=== PATIENT | female | born 1950 | race Two or more races ===

== ENCOUNTER 2017-01-26 00:52 | Emergency (ER) | payer MEDICARE, MEDICAID ==
[2017-01-26] MEDS ORDERED: NORMAL SALINE 1000 ML 1,000 ML IV ONE (01:53)
[2017-01-26] MEDS ORDERED: FENTANYL CITRATE INJ/PF 100 MCG/2 ML AMPUL IV ONE (01:53)
[2017-01-26] MEDS ORDERED: ONDANSETRON HCL INJ/PF 4 MG/2 ML SDV IV ONE (01:53)
--- NOTE | 2017-01-26 01:55 | ER Document Report ---
ED GI/ - General Chief Complaint: Urinary Problem Stated Complaint: URINARY ISSUES AND SEVERE FLANK PAIN Time Seen by Provider: 01/26/17 01:44 Notes: Patient is a 66-year-old female who comes emergency department for chief complaint of worsening pain in her right flank and right abdomen for 3 days, she states she is nauseated now and the pain has become very sharp. Patient states that she has not had any fever or chills, she reports having nausea but denies vomiting, she states she does have some pain with urination. She does have a history of kidney stones. She has had an appendectomy, cholecystectomy. Past medical history also includes oral cancer, she has completed chemotherapy and radiation in the past. TRAVEL OUTSIDE OF THE [place] IN LAST 30 DAYS: No - Related Data Allergies/Adverse Reactions: hydromorphone HCl [From Dilaudid] Allergy (Verified 09/05/16 11:01) ketorolac tromethamine [From Toradol] Allergy (Verified 09/05/16 11:01) morphine [Morphine] Allergy (Verified 09/05/16 11:01) phenazopyridine HCl [From Pyridium] Allergy (Verified 09/05/16 11:01) tramadol [Tramadol] Allergy (Verified 09/05/16 11:01) iodine [Iodine] Adverse Reaction (Verified 09/05/16 11:01) prednisone Adverse Reaction (Verified 09/05/16 11:01) iv contrast Allergy (Uncoded 09/05/16 10:47) Past Medical History - General Information source: Patient - Social History Smoking Status: Never Smoker Frequency of alcohol use: None Drug Abuse: None Lives with: Family Family History: CAD, DM, Hyperlipidemia, Hypertension, Malignancy Patient has suicidal ideation: No Patient has homicidal ideation: No - Past Medical History Cardiac Medical History: Reports: Hx Hypercholesterolemia Pulmonary Medical History: Reports: Hx Asthma, Hx COPD Endocrine Medical History: Reports: Hx Hypothyroidism Renal/ Medical History: Denies: Hx Peritoneal Dialysis GI Medical History: Reports: Hx Gastroesophageal Reflux Disease Musculoskeltal Medical History: Reports Hx Arthritis, Reports Hx Musculoskeletal Deformity, Reports Hx Musculoskeletal Trauma Psychiatric Medical History: Reports: Hx Anxiety Past Surgical History: Reports: Hx Abdominal Surgery - Exploratory lap with removal of adhesions, bowel obstruction, Hx Appendectomy, Hx Cardiac Catheterization - SEVERAL YRS. AGO, Hx Cholecystectomy, Hx Gynecologic Surgery - oophorectomy, Hx Tonsillectomy - Immunizations Hx Diphtheria, Pertussis, Tetanus Vaccination: No Review of Systems - Review of Systems Constitutional: No symptoms reported EENT: No symptoms reported Cardiovascular: No symptoms reported Respiratory: No symptoms reported Gastrointestinal: See HPI Genitourinary: See HPI Female Genitourinary: No symptoms reported Musculoskeletal: No symptoms reported Skin: No symptoms reported Hematologic/Lymphatic: No symptoms reported Neurological/Psychological: No symptoms reported Physical Exam - Vital signs Vitals: Temp Pulse Resp BP Pulse Ox 97.6 F 61 18 126/74 H 100 01/26/17 01:26 01/26/17 01:26 01/26/17 01:26 01/26/17 01:01/26/17 01:26 Interpretation: Normal - General General appearance: Alert, Anxious In distress: Mild - patient appears to be in some pain and is slightly anxious - HEENT Head: Normocephalic, Atraumatic Eyes: Normal Eyelashes: Normal Pupils: PERRL Mouth/Lips: Normal Mucous membranes: Normal Pharynx: Normal Neck: Normal - Respiratory Respiratory status: No respiratory distress Chest status: Nontender Breath sounds: Normal. No: Decreased air movement, Wheezing Chest palpation: Normal - Cardiovascular Rhythm: Regular. No: Tachycardia Heart sounds: Normal auscultation, S1 appreciated, S2 appreciated Murmur: No - Abdominal Inspection: Normal Distension: No distension Bowel sounds: Normal Tenderness: Tender - there is generalized lower abdominal tenderness, non- specific, no guarding Organomegaly: No organomegaly - Back Back: CVA tenderness - slight CVA tenderness on the right, not severe, none on the left. No: Vertebra tenderness - Extremities General upper extremity: Normal inspection, Nontender, Normal color, Normal ROM , Normal temperature General lower extremity: Normal inspection, Nontender, Normal color, Normal ROM , Normal temperature, Normal weight bearing. No: Naima's sign - Neurological Neuro grossly intact: Yes Cognition: Normal Orientation: AAOx4 [place] Coma Scale Eye Opening: Spontaneous [place] Coma Scale Verbal: Oriented [place] Coma Scale Motor: Obeys Commands [place] Coma Scale Total: 15 Speech: Normal Motor strength normal: LUE, RUE, LLE, RLE Sensory: Normal - Psychological Associated symptoms: Normal affect, Normal mood - Skin Skin Temperature: Warm Skin Moisture: Dry Skin Color: Normal Course - Re-evaluation Re-evalutation: No leukocytosis, normal renal functioning, unremarkable chemistry, no fever, no tachycardia, no hypotension. Patient initially appeared very uncomfortable, however after medication she is calm and relaxed. Urine showing large amount of leukocyte esterase, white blood cells, white blood cell clumping, and bacteria. Culture placed. Given a dose of Rocephin. CT performed because of flank pain, nausea, and history of kidney stones. This shows no acute abnormality, shows questionable adhesion disease, I did discuss this with patient and provided her a copy of the CAT scan. Discussed with Dr. Melgoza. Patient will be provided with Levaquin, Percocet, discussed return precautions, patient has follow-up with primary care, patient states satisfaction and agreement. - Vital Signs Vital signs: Temp Pulse Resp BP Pulse Ox 97.5 F 58 L 16 133/60 H 100 01/26/17 04:14 01/26/17 04:14 01/26/17 04:14 01/26/17 04:14 01/26/17 04:14 - Laboratory Result Diagrams: 01/26/17 03:31 01/26/17 03:31 Laboratory results interpreted by me: 01/26/17 01/26/17 01/26/17 02:25 03:31 03:31 Hct 34.9 L Direct Bilirubin 0.5 H Urine Protein 30 H Urine Blood LARGE H Ur Leukocyte Esterase LARGE H Discharge - Discharge Clinical Impression: Dysuria, Flank pain Abdominal pain Qualifiers: Abdominal location: unspecified location Qualified Code(s): R10.9 - Unspecified abdominal pain Urinary tract infection Qualifiers: Urinary tract infection type: site unspecified Hematuria presence: without hematuria Qualified Code(s): N39.0 - Urinary tract infection, site not specified Condition: Stable Disposition: HOME, SELF-CARE Additional Instructions: Your workup indicates a developing urinary tract infection and developing kidney infection. He has been given Rocephin, please take the Levaquin antibiotic as directed to completion (first dose is today, 01/26), take the Percocet as needed for pain follow-up with primary care.. Follow-up with primary care. Return to emergency department for any concerning or worsening symptoms including vomiting, fever, increasing pain, etc. Prescriptions: Levofloxacin [Levaquin 750 mg Tablet] 750 mg PO DAILY #5 tablet Oxycodone HCl/Acetaminophen [Percocet 5-325 mg Tablet] 1 - 2 tab PO Q4H PRN #12 tablet PRN Reason:
[2017-01-26 03:37] LABS: ABSOLUTE BASOPHILS # (AUTO) 0.1 10^3/uL (0.0-0.2); ABSOLUTE EOSINOPHILS # (AUTO) 0.2 10^3/uL (0.0-0.6); ABSOLUTE LYMPHOCYTES (AUTO) 2.1 10^3/uL (0.5-4.7); ABSOLUTE NEUT (AUTO) 5.8 10^3/uL (1.7-8.2); BASOPHILS % (AUTO) 0.9 % (0-2); EOSINOPHILS % (AUTO) 2.3 % (0-6); HEMATOCRIT 34.9 % (36.0-47.0); HEMOGLOBIN 12.1 g/dL (12.0-15.5); HGB HCT DIFFERENCE 1.4; LYMPHOCYTES % (AUTO) 22.7 % (13-45); MEAN CORPUSCULAR HEMOGLOBIN 32.2 pg (27.0-33.4); MEAN CORPUSCULAR HGB CONC 34.6 g/dL (32.0-36.0); MEAN CORPUSCULAR VOLUME 93 fl (80-97); MONOCYTES % (AUTO) 10.8 % (3-13); RED BLOOD COUNT 3.75 10^6/uL (3.72-5.28); RED CELL DISTRIBUTION WIDTH 12.9 % (11.5-14.0); SEGMENTED NEUTROPHILS % (AUTO) 63.3 % (42-78); WHITE BLOOD COUNT 9.2 10^3/uL (4.0-10.5)
[2017-01-26 03:48] LABS: ALANINE AMINOTRANSFERASE 24 U/L (9-52); ALBUMIN 4.1 g/dL (3.5-5.0); ALKALINE PHOSPHATASE 78 U/L (38-126); ANION GAP 11 (5-19); ASPARTATE AMINO TRANSFERASE 16 U/L (14-36); BILIRUBIN,DIRECT 0.5 mg/dL (0.0-0.4); BILIRUBIN,TOTAL 0.7 mg/dL (0.2-1.3); BLOOD UREA NITROGEN 17 mg/dL (7-20); CALCIUM 10.1 mg/dL (8.4-10.2); CARBON DIOXIDE 25 mmol/L (22-30); CHLORIDE 105 mmol/L (98-107); CREATININE RESULT 0.89 mg/dL (0.52-1.25); GLUCOSE 91 mg/dL (75-110); SODIUM 140.6 mmol/L (137-145); TOTAL PROTEIN 7.1 g/dL (6.3-8.2)
[2017-01-26 04:16] VITALS: BP 133/60
[2017-01-26 04:22] LABS: APPEARANCE,URINE CLOUDY; BILIRUBIN,URINE NEGATIVE (NEGATIVE); GLUCOSE, URINE NEGATIVE (NEGATIVE); KETONES,URINE NEGATIVE (NEGATIVE); LEUKOCYTE ESTERASE,URINE LARGE (NEGATIVE); NITRITE,URINE NEGATIVE (NEGATIVE); PROTEIN,URINE 30 mg/dL (NEGATIVE); URINE SPECIFIC GRAVITY 1.005; UROBILINOGEN,URINE NEGATIVE mg/dL (<2.0)
[2017-01-26] MEDS ORDERED: CEFTRIAXONE 1 GM/D5W RTU 50 ML IV ONE (04:42)
== END 2017-01-26 06:14 | disposition home or self-care (01) ==
LOC: ER 00:52
DX: N39.0 Urinary tract infection, site not specified (principal); R10.9 Unspecified abdominal pain; R11.0 Nausea; R30.0 Dysuria; J44.9 Chronic obstructive pulmonary disease, unspecified; Z87.442 Personal history of urinary calculi; Z90.49 Acquired absence of other specified parts of digestive tract; Z85.819 Personal history of malignant neoplasm of unspecified site of lip, oral cavity, and pharynx; Z92.21 Personal history of antineoplastic chemotherapy; Z92.3 Personal history of irradiation; Z88.5 Allergy status to narcotic agent; Z88.8 Allergy status to other drugs, medicaments and biological substances; Z91.041 Radiographic dye allergy status; Z87.19 Personal history of other diseases of the digestive system
CPT/HCPCS: 99284; 96375; 96365; 36415; 87086; 85025; 87088; 80053; 81001; 87186; 76380; J3010; J2405; J0696

== ENCOUNTER 2017-04-04 08:35 | Emergency (ER) | payer MEDICARE, MEDICAID ==
--- NOTE | 2017-04-04 09:18 | ER Document Report ---
ED GI/ - General Chief Complaint: Flank Pain Stated Complaint: FLANK PAIN Time Seen by Provider: 04/04/17 09:15 Notes: Patient is a 66-year-old female, past medical history oral cancer (no longer on treatment), kidney stones, frequent kidney infections, presents with 2 days of right flank pain, dysuria and hematuria. She had a fall yesterday onto her right hip and feels that her sciatica is aggravated. TRAVEL OUTSIDE OF THE [place] IN LAST 30 DAYS: No - Related Data Allergies/Adverse Reactions: hydromorphone HCl [From Dilaudid] Allergy (Verified 04/04/17 08:43) ketorolac tromethamine [From Toradol] Allergy (Verified 04/04/17 08:43) morphine [Morphine] Allergy (Verified 04/04/17 08:43) phenazopyridine HCl [From Pyridium] Allergy (Verified 04/04/17 08:43) tramadol [Tramadol] Allergy (Verified 04/04/17 08:43) iodine [Iodine] Adverse Reaction (Verified 04/04/17 08:43) prednisone Adverse Reaction (Verified 04/04/17 08:43) iv contrast Allergy (Uncoded 04/04/17 08:43) Home Medications: Current Home Medications Meloxicam [Mobic] 15 mg PO DAILY 04/04/17 [History] Past Medical History - General Information source: Patient - Social History Smoking Status: Unknown if Ever Smoked Family History: CAD, DM, Hyperlipidemia, Hypertension, Malignancy Patient has suicidal ideation: No Patient has homicidal ideation: No - Past Medical History Cardiac Medical History: Reports: Hx Hypercholesterolemia Pulmonary Medical History: Reports: Hx Asthma, Hx COPD Endocrine Medical History: Reports: Hx Hypothyroidism Renal/ Medical History: Denies: Hx Peritoneal Dialysis GI Medical History: Reports: Hx Gastroesophageal Reflux Disease Musculoskeltal Medical History: Reports Hx Arthritis, Reports Hx Musculoskeletal Deformity, Reports Hx Musculoskeletal Trauma Psychiatric Medical History: Reports: Hx Anxiety Past Surgical History: Reports: Hx Abdominal Surgery - Exploratory lap with removal of adhesions, bowel obstruction, Hx Appendectomy, Hx Cardiac Catheterization - SEVERAL YRS. AGO, Hx Cholecystectomy, Hx Gynecologic Surgery - oophorectomy, Hx Tonsillectomy - Immunizations Hx Diphtheria, Pertussis, Tetanus Vaccination: No Review of Systems - Review of Systems Notes: REVIEW OF SYSTEMS: CONSTITUTIONAL: -fevers, -chills EENT: -eye pain, -difficulty swallowing, -nasal congestion CARDIOVASCULAR:-chest pain, -syncope. RESPIRATORY: -cough, -SOB GASTROINTESTINAL: -abdominal pain, - nausea, -vomiting, -diarrhea GENITOURINARY: +dysuria, +hematuria MUSCULOSKELETAL: +right flank pain, +right hip pain, -neck pain SKIN: -rash or skin lesions. HEMATOLOGIC: -easy bruising or bleeding. LYMPHATIC: -swollen, enlarged glands. NEUROLOGICAL: -altered mental status or loss of consciousness, -headache, - neurologic symptoms PSYCHIATRIC: -anxiety, -depression. ALL OTHER SYSTEMS REVIEWED AND NEGATIVE. Physical Exam - Vital signs Vitals: Temp Pulse Resp BP Pulse Ox 98.3 F 67 18 115/93 H 98 04/04/17 08:45 04/04/17 08:45 04/04/17 08:45 04/04/17 08:45 04/04/17 08:45 - Notes Notes: PHYSICAL EXAMINATION: GENERAL: Well-appearing, well-nourished and in no acute distress. HEAD: Atraumatic, normocephalic. EYES: Pupils equal round and reactive to light, extraocular movements intact, sclera anicteric, conjunctiva are normal. ENT: nares patent, oropharynx clear without exudates. Moist mucous membranes. NECK: Normal range of motion, supple without lymphadenopathy LUNGS: Breath sounds clear to auscultation bilaterally and equal. No wheezes rales or rhonchi. HEART: Regular rate and rhythm without murmurs ABDOMEN: Soft, nontender, normoactive bowel sounds. No guarding, no rebound. No masses appreciated. EXTREMITIES: Right CVA tenderness. Mild tenderness over right hip. Normal range of motion, no pitting or edema. No cyanosis. NEUROLOGICAL: Cranial nerves grossly intact. Normal speech, normal gait. Normal sensory and motor exams. PSYCH: Normal mood, normal affect. SKIN: Warm, Dry, normal turgor, no rashes or lesions noted. Course - Re-evaluation Re-evalutation: Patient appears well. On CAT scan she has evidence of a recently passed kidney stone, but no more stones are present. Her urinalysis shows possible urinary tract infection. Looking through old culture results, will begin Keflex to help cover for enterococcus. Her labs are unremarkable and her hip on the CT scan does not show any fractures. Instructed patient to continue her meloxicam and Percocet at home w/ f/u at PMD. Given strict return precautions and she understands. - Vital Signs Vital signs: Temp Pulse Resp BP Pulse Ox 98.3 F 67 18 115/93 H 98 04/04/17 08:45 04/04/17 08:45 04/04/17 08:45 04/04/17 08:45 04/04/17 08:45 - Laboratory Result Diagrams: 04/04/17 09:45 04/04/17 09:45 Laboratory results interpreted by me: 04/04/17 04/04/17 04/04/17 08:45 09:45 09:45 RBC 3.65 L Hgb 11.8 L Hct 34.2 L Chloride 108 H Urine Blood MODERATE H Urine Urobilinogen 2.0 H Ur Leukocyte Esterase LARGE H - Diagnostic Test Radiology reviewed: Image reviewed, Reports reviewed Radiology results interpreted by me: CT A/P: Evidence of a recently passed kidney stone Discharge - Discharge Clinical Impression: Right flank pain, Pyelonephritis, Right hip pain Condition: Stable Disposition: HOME, SELF-CARE Additional Instructions: PYELONEPHRITIS: Your evaluation shows evidence of pyelonephritis. This is an infection in the kidney. Typical symptoms are fever, pain in the flank, pain on urination, and frequent urination. Many cases of pyelonephritis can be treated at home. Hospital care may be necessary for patients who are very ill, or elderly or . Pyelonephritis is treated with antibiotics. Be sure to take all the medication as prescribed. Drink plenty of liquids (about three quarts per day) . You may take acetaminophen for fever. You should feel significantly improved within two days. You should have a recheck of your urine in about one week to insure that the infection is gone. Return for a re-examination if your symptoms worsen in any way -- such as high fever, shaking chills, severe weakness or dizziness, severe pain, or inability to pass your urine. ANTIBIOTIC THERAPY: You have been given an antibiotic prescription. It's important that you take all the medication, unless instructed otherwise by your physician. Failure to complete the entire course can result in relapse of your condition. Common side effects of antibiotics include nausea, intestinal cramping, or diarrhea. Women may develop vaginal yeast infections, and babies can get yeast (thrush) in the mouth following the use of antibiotics. Contact your physician if you develop significant side effects from this medication. Allergy to this antibiotic can result in hives, wheezing, faintness, or itching. If symptoms of allergy occur, stop the medication and call the doctor. CEPHALEXIN: The antibiotic you've been prescribed is a member of the cephalosporin class. This type of antibiotic covers a wide variety of infections, including those of the skin, lungs, and urinary tract. It's useful for staph infections. This antibiotic is slightly similar to the penicillin family. In rare cases , a person who is allergic to penicillin will also be allergic to this medication. If you have had a severe allergic reaction to penicillin, and have not taken this antibiotic since that time, notify your doctor. Antibiotics which cover many germs ("broad spectrum" antibiotics) are more likely to cause diarrhea or "yeast" infections. Women prone to vaginal yeast problems may suffer an attack after taking this antibiotic. In infants, oral thrush (white spots "stuck" on the cheek) or yeast diaper rash may result. See your doctor if these problems occur. Call at once if you develop itching, hives , shortness of breath, or lightheadedness. USE OF ACETAMINOPHEN (Tylenol): Acetaminophen may be taken for pain relief or fever control. It's much safer than aspirin, offering a wider range of "safe" dosages. It is safe during . Some brand names are Tylenol, Panadol, Datril, Anacin 3, Tempra, and Liquiprin. Acetaminophen can be repeated every four hours. The following are maximum recommended dosages: >89 pounds or adults 650 mg to 900 mg Acetaminophen can be repeated every four hours. Maximum dose not to exceed 4000 mg a day. FOLLOW-UP CARE: If you have been referred to a physician for follow-up care, call the physician s office for an appointment as you were instructed or within the next two days. If you experience worsening or a significant change in your symptoms, notify the physician immediately or return to the Emergency Department at any time for re-evaluation. Prescriptions: Cephalexin Monohydrate [Keflex 500 mg Capsule] 500 mg PO TID #21 capsule Lidocaine HCl [Xylocaine 2% Jelly 30 ml Tube] 30 ml TOP DAILYP PRN #1 tube PRN Reason: Meloxicam 15 mg PO DAILY #10 tablet Oxycodone HCl/Acetaminophen [Percocet 5-325 mg Tablet] 1 - 2 tab PO Q4H PRN #7 tablet PRN Reason:
[2017-04-04 09:25] LABS: APPEARANCE,URINE SLIGHTLY-CLOUDY; BILIRUBIN,URINE NEGATIVE (NEGATIVE); GLUCOSE, URINE NEGATIVE (NEGATIVE); KETONES,URINE NEGATIVE (NEGATIVE); LEUKOCYTE ESTERASE,URINE LARGE (NEGATIVE); NITRITE,URINE NEGATIVE (NEGATIVE); PROTEIN,URINE NEGATIVE (NEGATIVE); URINE SPECIFIC GRAVITY 1.011
[2017-04-04] MEDS ORDERED: CEFTRIAXONE 1 GM/D5W RTU 50 ML IV ONE (09:52)
[2017-04-04 09:55] LABS: ABSOLUTE EOSINOPHILS # (AUTO) 0.1 10^3/uL (0.0-0.6); ABSOLUTE LYMPHOCYTES (AUTO) 1.4 10^3/uL (0.5-4.7); ABSOLUTE MONOCYTES (AUTO) 0.5 10^3/uL (0.1-1.4); ABSOLUTE NEUT (AUTO) 3.1 10^3/uL (1.7-8.2); BASOPHILS % (AUTO) 0.8 % (0-2); EOSINOPHILS % (AUTO) 2.6 % (0-6); HEMATOCRIT 34.2 % (36.0-47.0); HEMOGLOBIN 11.8 g/dL (12.0-15.5); HGB HCT DIFFERENCE 1.2; LYMPHOCYTES % (AUTO) 27.3 % (13-45); MEAN CORPUSCULAR HEMOGLOBIN 32.3 pg (27.0-33.4); MEAN CORPUSCULAR HGB CONC 34.4 g/dL (32.0-36.0); MEAN CORPUSCULAR VOLUME 94 fl (80-97); MONOCYTES % (AUTO) 10.1 % (3-13); RED BLOOD COUNT 3.65 10^6/uL (3.72-5.28); RED CELL DISTRIBUTION WIDTH 13.5 % (11.5-14.0); SEGMENTED NEUTROPHILS % (AUTO) 59.2 % (42-78); WHITE BLOOD COUNT 5.2 10^3/uL (4.0-10.5)
[2017-04-04 10:11] LABS: ALANINE AMINOTRANSFERASE 26 U/L (9-52); ALBUMIN 4.1 g/dL (3.5-5.0); ALKALINE PHOSPHATASE 71 U/L (38-126); ANION GAP 8 (5-19); ASPARTATE AMINO TRANSFERASE 22 U/L (14-36); BILIRUBIN,DIRECT 0.3 mg/dL (0.0-0.4); BILIRUBIN,TOTAL 0.4 mg/dL (0.2-1.3); BLOOD UREA NITROGEN 12 mg/dL (7-20); CALCIUM 9.4 mg/dL (8.4-10.2); CARBON DIOXIDE 27 mmol/L (22-30); CHLORIDE 108 mmol/L (98-107); CREATININE RESULT 0.71 mg/dL (0.52-1.25); GLUCOSE 90 mg/dL (75-110); LIPASE 259.2 U/L (23-300); POTASSIUM 3.9 mmol/L (3.6-5.0); SODIUM 143.3 mmol/L (137-145); TOTAL PROTEIN 7.2 g/dL (6.3-8.2)
[2017-04-04] MEDS ORDERED: OXYCODONE-ACETAMINOPHEN 5-325 MG TABLET PO ONE (10:13)
[2017-04-04] MEDS ORDERED: MELOXICAM 15 MG TABLET PO ONE (10:13)
--- NOTE | 2017-04-04 10:14 | RADIOLOGY REPORT (SQ) ---
EXAM DESCRIPTION: CT LTD RENAL STONE PROTOCOL ON COMPLETED DATE/TIME: 04/04/2017 10:02 am REASON FOR STUDY: right flank pain, Hx kidney stones COMPARISON: 01/26/2017 TECHNIQUE: CT scan of the abdomen and pelvis performed without intravenous or oral contrast. Images reviewed with lung, soft tissue, and bone windows. Reconstructed coronal and sagittal MPR images revi ewed. All images stored on PACS. All CT scanners at this facility use dose modulation, iterative reconstruction, and/or weight based d osing when appropriate to reduce radiation dose to as low as reasonably achievable (ALARA). [facility]: Dose Right [facility]: CareDose [facility]: Dose Right [facility]: Teradose 4D [facility]: [employer] RADIATION DOSE: Up-to-date CT equipment and radiation dose reduction techniques were employed. CTDIv ol: 22.0 mGy. DLP: 1089 mGy-cm.mGy. LIMITATIONS: None. FINDINGS: LOWER CHEST: No significant findings. No nodules or infiltrates. NON-CONTRASTED LIVER, SPLEEN, ADRENALS: Hepatic cysts. PANCREAS: No masses. No peripancreatic inflammatory changes. GALLBLADDER: Surgically absent. RIGHT KIDNEY AND URETER: No suspicious masses. Assessment limited by lack of IV contrast. No signif icant calcifications. Hydroureter. LEFT KIDNEY AND URETER: Parapelvic cyst. Large cortical cysts. No suspicious masses. Assessment cueva ited by lack of IV contrast. No significant calcifications. No hydronephrosis or hydroureter. AORTA AND RETROPERITONEUM: No aneurysm. No retroperitoneal masses or adenopathy. BOWEL AND PERITONEAL CAVITY: No obvious masses or inflammatory changes. No free fluid. APPENDIX: Surgically absent. PELVIS, BLADDER, AND ABDOMINAL WALL:No abnormal masses. No free fluid. Bladder normal. BONES: No significant findings. OTHER: No other significant finding. IMPRESSION: Right hydroureter without visualized ureteral or bladder stone, possibly due to recent s tone passage. Correlation with urinalysis is recommended. TECHNICAL DOCUMENTATION: JOB ID: [id number] Quality ID # [id number]: Final reports with documentation of one or more dose reduction techniques (e.g., Au tomated exposure control, adjustment of the mA and/or kV according to patient size, use of iterative reconstruction technique) 2010 [employer]- All Rights Reserved
[2017-04-04] MEDS ORDERED: NORMAL SALINE INJ/PF 0.9% 10 ML SDV IV PRN (10:42)
[2017-04-04 11:21] VITALS: BP 148/83
== END 2017-04-04 11:19 | disposition home or self-care (01) ==
LOC: ER 08:35
DX: N12 Tubulo-interstitial nephritis, not specified as acute or chronic (principal); R10.9 Unspecified abdominal pain; M25.551 Pain in right hip; R30.0 Dysuria; R31.9 Hematuria, unspecified; W19.XXXA Unspecified fall, initial encounter; Z79.899 Other long term (current) drug therapy
CPT/HCPCS: 99284; 96365; 36415; 83690; 85025; 80053; 81001; 76380; A9270 ×2; J3490; J0696

== ENCOUNTER 2017-05-08 10:51 | Emergency (ER) | payer MEDICARE, MEDICAID ==
--- NOTE | 2017-05-08 11:20 | ER Document Report ---
ED Medical Screen (RME) - General Chief Complaint: Pain All Over Stated Complaint: SIDE PAIN Time Seen by Provider: 05/08/17 11:17 Notes: Patient presents with left-sided arm chest and neck pain that started last night. She states it does seem to hurt worse if she moves her left arm. She denies any shortness of breath or cold symptoms. 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 She did not have any surgery for this but she did have chemotherapy and radiation. The radiation did cover the left neck and chest wall. She states this was 5 years ago. She denies any previous history of coronary artery disease and states she had a negative heart catheterization about 8 years ago. TRAVEL OUTSIDE OF THE [place] IN LAST 30 DAYS: No - Related Data Allergies/Adverse Reactions: hydromorphone HCl [From Dilaudid] Allergy (Verified 05/08/17 11:04) ketorolac tromethamine [From Toradol] Allergy (Verified 05/08/17 11:04) morphine [Morphine] Allergy (Verified 05/08/17 11:04) phenazopyridine HCl [From Pyridium] Allergy (Verified 05/08/17 11:04) tramadol [Tramadol] Allergy (Verified 05/08/17 11:04) iodine [Iodine] Adverse Reaction (Verified 05/08/17 11:04) prednisone Adverse Reaction (Verified 05/08/17 11:04) iv contrast Allergy (Uncoded 05/08/17 11:04) Past Medical History - Social History Frequency of alcohol use: None Drug Abuse: None - Past Medical History Cardiac Medical History: Reports: Hx Hypercholesterolemia Pulmonary Medical History: Reports: Hx Asthma, Hx COPD Neurological Medical History: Reports: Hx Migraine Endocrine Medical History: Reports: Hx Hypothyroidism Renal/ Medical History: Denies: Hx Peritoneal Dialysis GI Medical History: Reports: Hx Gastroesophageal Reflux Disease Musculoskeltal Medical History: Reports Hx Arthritis, Reports Hx Musculoskeletal Deformity, Reports Hx Musculoskeletal Trauma Psychiatric Medical History: Reports: Hx Anxiety Past Surgical History: Reports: Hx Abdominal Surgery - Exploratory lap with removal of adhesions, bowel obstruction, Hx Appendectomy, Hx Cardiac Catheterization - SEVERAL YRS. AGO, Hx Cholecystectomy, Hx Gynecologic Surgery - oophorectomy, Hx Hysterectomy, Hx Tonsillectomy - Immunizations Hx Diphtheria, Pertussis, Tetanus Vaccination: No Physical Exam - Vital signs Vitals: Temp Pulse Resp BP Pulse Ox 97.9 F 71 20 148/85 H 100 05/08/17 11:02 05/08/17 11:02 05/08/17 11:02 05/08/17 11:02 05/08/17 11:02 Course - Vital Signs Vital signs: Temp Pulse Resp BP Pulse Ox 97.9 F 71 20 148/85 H 100 05/08/17 11:02 05/08/17 11:02 05/08/17 11:02 05/08/17 11:02 05/08/17 11:02
--- NOTE | 2017-05-08 11:51 | EKG REPORT ---
SEVERITY:- NORMAL ECG - SINUS RHYTHM : Confirmed by: Bran Sherman 08-May-2017 11:51:26
--- NOTE | 2017-05-08 11:53 | RADIOLOGY REPORT (SQ) ---
EXAM DESCRIPTION: CHEST PA/LAT COMPLETED DATE/TIME: 05/08/2017 11:42 am REASON FOR STUDY: cp COMPARISON: Two-view chest 01/01/2008, 07/25/2015, 10/30/2015, 01/25/2016 EXAM PARAMETERS: NUMBER OF VIEWS: two views TECHNIQUE: Digital Frontal and Lateral radiographic views of the chest acquired. RADIATION DOSE: NA LIMITATIONS: none FINDINGS: LUNGS AND PLEURA: Lungs are hyperinflated and hyperlucent from obstructive disease. No pleural effusions. No pneumothorax. No pulmonary nodules. MEDIASTINUM AND HILAR STRUCTURES: No masses or contour abnormalities. HEART AND VASCULAR STRUCTURES: Heart normal size. No evidence for failure. BONES: Osteoporotic. No thoracic acute compression deformity HARDWARE: Right-sided permanent central line tip superior vena cava OTHER: No other significant finding. IMPRESSION: Obstructive lung disease. No acute findings TECHNICAL DOCUMENTATION: JOB ID: [id number] [employer]- All Rights Reserved
--- NOTE | 2017-05-08 12:55 | RADIOLOGY REPORT (SQ) ---
EXAM DESCRIPTION: CT HEAD WITHOUT COMPLETED DATE/TIME: 05/08/2017 12:44 pm REASON FOR STUDY: left sided pain from head down side COMPARISON: CT brain 06/28/2008 TECHNIQUE: Axial images acquired through the brain without intravenous contrast. Images reviewed wi th bone, brain and subdural windows. Images stored on PACS. All CT scanners at this facility use dose modulation, iterative reconstruction, and/or weight based d osing when appropriate to reduce radiation dose to as low as reasonably achievable (ALARA). [facility]: Dose Right [facility]: CareDose [facility]: Dose Right [facility]: Teradose 4D [facility]: [employer] RADIATION DOSE: 64 mGy. LIMITATIONS: Mild motion artifact on images through the posterior fossa FINDINGS: VENTRICLES: Normal size and contour. CEREBRUM: No masses. No hemorrhage. No midline shift. No evidence for acute infarction. Normal gra y/white matter differentiation. No areas of low density in the white matter. CEREBELLUM: Mild motion artifact on images through the posterior fossa. No masses. No hemorrhage. No alteration of density. No evidence for acute infarction. EXTRAAXIAL SPACES: No fluid collections. No masses. ORBITS AND GLOBE: No intra- or extraconal masses. Normal contour of globe without masses. CALVARIUM: No fracture. PARANASAL SINUSES: No fluid or mucosal thickening. SOFT TISSUES: No mass or hematoma. OTHER: No other significant finding. IMPRESSION: Mild motion artifact, no acute findings. COMMENT: Quality ID # [id number]: Final reports with documentation of one or more dose reduction techniques (e.g., Automated exposure control, adjustment of the mA and/or kV according to patient size, use of iterative reconstruction technique) TECHNICAL DOCUMENTATION: JOB ID: [id number]- All Rights Reserved
[2017-05-08] MEDS ORDERED: FENTANYL CITRATE INJ/PF 100 MCG/2 ML AMPUL IV ONE (13:46)
[2017-05-08 13:58] LABS: ABSOLUTE BASOPHILS # (AUTO) 0.1 10^3/uL (0.0-0.2); ABSOLUTE EOSINOPHILS # (AUTO) 0.1 10^3/uL (0.0-0.6); ABSOLUTE LYMPHOCYTES (AUTO) 1.7 10^3/uL (0.5-4.7); ABSOLUTE MONOCYTES (AUTO) 0.4 10^3/uL (0.1-1.4); ABSOLUTE NEUT (AUTO) 3.8 10^3/uL (1.7-8.2); BASOPHILS % (AUTO) 0.9 % (0-2); HEMATOCRIT 40.5 % (36.0-47.0); HEMOGLOBIN 14.1 g/dL (12.0-15.5); HGB HCT DIFFERENCE 1.8; LYMPHOCYTES % (AUTO) 28.6 % (13-45); MEAN CORPUSCULAR HGB CONC 34.8 g/dL (32.0-36.0); MEAN CORPUSCULAR VOLUME 95 fl (80-97); MONOCYTES % (AUTO) 7.2 % (3-13); RED BLOOD COUNT 4.28 10^6/uL (3.72-5.28); RED CELL DISTRIBUTION WIDTH 13.5 % (11.5-14.0); SEGMENTED NEUTROPHILS % (AUTO) 62.3 % (42-78)
[2017-05-08 14:10] LABS: ALANINE AMINOTRANSFERASE 29 U/L (9-52); ALBUMIN 4.5 g/dL (3.5-5.0); ALKALINE PHOSPHATASE 79 U/L (38-126); ANION GAP 14 (5-19); ASPARTATE AMINO TRANSFERASE 19 U/L (14-36); BILIRUBIN,DIRECT 0.5 mg/dL (0.0-0.4); BILIRUBIN,TOTAL 0.5 mg/dL (0.2-1.3); BLOOD UREA NITROGEN 15 mg/dL (7-20); CALCIUM 10.6 mg/dL (8.4-10.2); CARBON DIOXIDE 24 mmol/L (22-30); CHLORIDE 106 mmol/L (98-107); CREATININE RESULT 0.72 mg/dL (0.52-1.25); GLUCOSE 90 mg/dL (75-110); POTASSIUM 4.1 mmol/L (3.6-5.0); SODIUM 143.6 mmol/L (137-145); TOTAL PROTEIN 7.7 g/dL (6.3-8.2)
--- NOTE | 2017-05-08 14:52 | ER Document Report ---
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 Patient has not been on chemo or radiation in 4 years, but complains of this chronic pain that comes and goes and gets worse and gets better. She is on meloxicam. She states that usually that helps with her pain. She denies any nausea, vomiting , shortness of breath or changes to her chronic pain at this time. TRAVEL OUTSIDE OF THE [place] IN LAST 30 DAYS: No - Related Data Allergies/Adverse Reactions: hydromorphone HCl [From Dilaudid] Allergy (Verified 05/08/17 11:04) ketorolac tromethamine [From Toradol] Allergy (Verified 05/08/17 11:04) morphine [Morphine] Allergy (Verified 05/08/17 11:04) phenazopyridine HCl [From Pyridium] Allergy (Verified 05/08/17 11:04) tramadol [Tramadol] Allergy (Verified 05/08/17 11:04) iodine [Iodine] Adverse Reaction (Verified 05/08/17 11:04) prednisone Adverse Reaction (Verified 05/08/17 11:04) iv contrast Allergy (Uncoded 05/08/17 11:04) Past Medical History - General Information source: Patient - Social History Smoking Status: Former Smoker Frequency of alcohol use: None Drug Abuse: None Family History: CAD, DM, Hyperlipidemia, Hypertension, Malignancy Patient has suicidal ideation: No Patient has homicidal ideation: No - Past Medical History Cardiac Medical History: Reports: Hx Hypercholesterolemia Pulmonary Medical History: Reports: Hx Asthma, Hx COPD Neurological Medical History: Reports: Hx Migraine Endocrine Medical History: Reports: Hx Hypothyroidism Renal/ Medical History: Denies: Hx Peritoneal Dialysis GI Medical History: Reports: Hx Gastroesophageal Reflux Disease Musculoskeltal Medical History: Reports Hx Arthritis, Reports Hx Musculoskeletal Deformity, Reports Hx Musculoskeletal Trauma Psychiatric Medical History: Reports: Hx Anxiety Past Surgical History: Reports: Hx Abdominal Surgery - Exploratory lap with removal of adhesions, bowel obstruction, Hx Appendectomy, Hx Cardiac Catheterization - SEVERAL YRS. AGO, Hx Cholecystectomy, Hx Gynecologic Surgery - oophorectomy, Hx Hysterectomy, Hx Tonsillectomy - Immunizations Hx Diphtheria, Pertussis, Tetanus Vaccination: No Review of Systems - Review of Systems Constitutional: No symptoms reported EENT: No symptoms reported Cardiovascular: No symptoms reported Respiratory: No symptoms reported Gastrointestinal: No symptoms reported Genitourinary: No symptoms reported Female Genitourinary: No symptoms reported Musculoskeletal: See HPI Skin: No symptoms reported Hematologic/Lymphatic: No symptoms reported Neurological/Psychological: No symptoms reported Physical Exam - Vital signs Vitals: Temp Pulse Resp BP Pulse Ox 97.9 F 71 20 148/85 H 100 05/08/17 11:02 05/08/17 11:02 05/08/17 11:02 05/08/17 11:02 05/08/17 11:02 - Notes Notes: PHYSICAL EXAMINATION: GENERAL: Anxious, tearful, but in no acute distress. HEAD: Atraumatic, normocephalic. EYES: Pupils equal round and reactive to light, extraocular movements intact, sclera anicteric, conjunctiva are normal. NECK: Normal range of motion, supple without lymphadenopathy LUNGS: CTAB and equal. No wheezes rales or rhonchi. HEART: No tenderness, regular rate and rhythm without murmurs ABDOMEN: Soft, no tenderness. No guarding, no rebound BACK: no vertebral tenderness, normal ROM GI/: no CVA tenderness EXTREMITIES: Exquisitely tender to left shoulder/left side of neck to very light touch, normal range of motion, no pitting edema. No cyanosis. NEUROLOGICAL: Cranial nerves grossly intact. Normal sensory/motor exams. PSYCH: anxious, tearful SKIN: Warm, Dry, normal turgor, no rashes or lesions noted Course - Re-evaluation Re-evalutation: 05/08/17 18:56 Patient was given pain medicine here in the emergency department and will be started on gabapentin as this seems like chronic nerve pain. Lab work was normal today including cardiac enzymes, EKG revealed a normal sinus rhythm without evidence of ischemia or abnormality. Chest x-ray was also normal. Patient to follow-up with her primary care provider. - Vital Signs Vital signs: Temp Pulse Resp BP Pulse Ox 97.9 F 63 18 151/80 H 99 05/08/17 15:51 05/08/17 15:51 05/08/17 15:51 05/08/17 15:51 05/08/17 15:51 - Laboratory Result Diagrams: 05/08/17 13:39 05/08/17 13:39 Laboratory results interpreted by me: 05/08/17 13:39 Calcium 10.6 H Direct Bilirubin 0.5 H Discharge - Discharge Clinical Impression: Chest wall pain, nerve pain due to radiation Condition: Stable Disposition: HOME, SELF-CARE Additional Instructions: Return immediately for any new or worsening symptoms. Follow up with primary care provider, call tomorrow to make followup appointment. Prescriptions: Gabapentin 300 mg PO TID #30 capsule Oxycodone HCl/Acetaminophen [Percocet 5-325 mg Tablet] 1 - 2 tab PO Q4H PRN #10 tablet PRN Reason: Referrals: REUBEN DIMAS MD [ACTIVE STAFF] - Follow up as needed CORTES FLANAGAN MD [ACTIVE STAFF] - Follow up as needed MEMO STERLING MD [EMERITUS] - Follow up as needed
[2017-05-08 15:55] VITALS: BP 151/80
== END 2017-05-08 15:56 | disposition home or self-care (01) ==
LOC: ER 10:51
DX: R07.89 Other chest pain (principal); M79.2 Neuralgia and neuritis, unspecified; M79.1 Myalgia; M54.2 Cervicalgia; M79.602 Pain in left arm; G89.29 Other chronic pain; E78.00 Pure hypercholesterolemia, unspecified; J44.9 Chronic obstructive pulmonary disease, unspecified; E03.9 Hypothyroidism, unspecified; K21.9 Gastro-esophageal reflux disease without esophagitis; Z87.891 Personal history of nicotine dependence; Z90.49 Acquired absence of other specified parts of digestive tract; Z90.710 Acquired absence of both cervix and uterus
CPT/HCPCS: 93005; 36591; 99284; 96374; 36415; 85025; 80053; 84484; 71020; 70450; 93010; J3010

== ENCOUNTER 2017-05-28 07:45 | Emergency (ER) | payer MEDICARE, MEDICAID ==
[2017-05-28] MEDS ORDERED: LIDOCAINE 5% (700 MG) TRANSDERMAL ADH..PATCH TP ONE (08:19)
[2017-05-28] MEDS ORDERED: OXYCODONE-ACETAMINOPHEN 5-325 MG TABLET PO ONE (08:19)
--- NOTE | 2017-05-28 09:21 | RADIOLOGY REPORT (SQ) ---
EXAM DESCRIPTION: L SPINE WHOLE COMPLETED DATE/TIME: 05/28/2017 9:11 am REASON FOR STUDY: low back pain COMPARISON: None. NUMBER OF VIEWS: Five views including obliques. TECHNIQUE: AP, lateral, oblique, and sacral radiographic images acquired of the lumbar spine. LIMITATIONS: None. FINDINGS: MINERALIZATION: Normal. SEGMENTATION: Normal. No transitional anatomy. ALIGNMENT: Normal. VERTEBRAE: Maintained height. No fracture or worrisome bone lesion. DISCS: Preserved height. No significant osteophytes or end plate irregularity. POSTERIOR ELEMENTS: Pedicles and facets are intact. No pars defect or posterior arch defects. HARDWARE: None in the spine. PARASPINAL SOFT TISSUES: Normal. PELVIS: Intact as visualized. No fractures or worrisome bone lesions. SI joints intact. OTHER: No other significant finding. IMPRESSION: NORMAL 5 VIEW LUMBAR SPINE. TECHNICAL DOCUMENTATION: JOB ID: [id number] [employer]- All Rights Reserved
--- NOTE | 2017-05-28 09:53 | ER Document Report ---
HPI - HPI Patient complains to provider of: Low back pain Onset: Yesterday Onset/Duration: Gradual Quality of pain: Sharp Pain Level: 5 Context: Patient complains of low back pain that radiates to her right lower extremity. Patient does state she has had sciatica in the past in the same pattern. Patient denies any injury. Patient denies any fever or weakness. Patient denies any history of IV drug use. Associated Symptoms: Other - Low back pain. denies: Fever Exacerbated by: Standing, Movement, Walking Relieved by: Denies Similar symptoms previously: Yes Recently seen / treated by doctor: No - ROS ROS below otherwise negative: Yes Systems Reviewed and Negative: Yes All other systems reviewed and negative - CONSTITUTIONAL Constitutional: DENIES: Fever, Chills - NEURO Neurology: DENIES: Headache, Weakness - CARDIOVASCULAR Cardiovascular: DENIES: Chest pain - REPRODUCTIVE Reproductive: DENIES: : - MUSCULOSKELETAL Musculoskeletal: REPORTS: Extremity pain, Back Pain. DENIES: Neck Pain, Swelling - DERM Skin Color: Normal Skin Problems: None Past Medical History - General Information source: Patient - Social History Smoking Status: Former Smoker Frequency of alcohol use: None Drug Abuse: None Occupation: None Lives with: Family Family History: CAD, DM, Hyperlipidemia, Hypertension, Malignancy Patient has suicidal ideation: No Patient has homicidal ideation: No - Past Medical History Cardiac Medical History: Reports: Hx Hypercholesterolemia Pulmonary Medical History: Reports: Hx Asthma, Hx COPD Neurological Medical History: Reports: Hx Migraine Endocrine Medical History: Reports: Hx Hypothyroidism Renal/ Medical History: Denies: Hx Peritoneal Dialysis GI Medical History: Reports: Hx Gastroesophageal Reflux Disease Musculoskeltal Medical History: Reports Hx Arthritis, Reports Hx Musculoskeletal Deformity, Reports Hx Musculoskeletal Trauma Psychiatric Medical History: Reports: Hx Anxiety Past Surgical History: Reports: Hx Abdominal Surgery - Exploratory lap with removal of adhesions, bowel obstruction, Hx Appendectomy, Hx Cardiac Catheterization - SEVERAL YRS. AGO, Hx Cholecystectomy, Hx Gynecologic Surgery - oophorectomy, Hx Hysterectomy, Hx Tonsillectomy - Immunizations Hx Diphtheria, Pertussis, Tetanus Vaccination: No Vertical Provider Document - CONSTITUTIONAL Agree With Documented VS: Yes Exam Limitations: No Limitations General Appearance: WD/WN, No Apparent Distress Notes: PHYSICAL EXAMINATION: GENERAL: Well-appearing, well-nourished and in no acute distress. HEAD: Atraumatic, normocephalic. EYES: sclera clear, anicteric, conjunctiva are normal. ENT: nares patent, Moist mucous membranes. NECK: Normal range of motion, supple no lymphadenopathy LUNGS: respirations unlabored HEART: Regular rate and rhythm without murmurs EXTREMITIES: Normal range of motion, no pitting or edema. No cyanosis. Gait normal, pt ambulates without difficulty BACK: Right lower lumbar paraspinal tenderness, right SI joint tenderness, no midline tenderness, no deformities or step-offs. No CVA tenderness. NEUROLOGICAL: Cranial nerves grossly intact. Normal speech, normal gait. No saddle anesthesia. Normal gait, no footdrop, 2+ bilateral patellar reflexes PSYCH: Normal mood, normal affect. SKIN: Warm, Dry, normal turgor, no rashes or lesions noted. - INFECTION CONTROL TRAVEL OUTSIDE OF THE [place] IN LAST 30 DAYS: No - RESPIRATORY O2 Sat by Pulse Oximetry: 100 Course - Re-evaluation Re-evalutation: 05/28/17 The patient presents with low back pain without signs of spinal cord compression , cauda equina syndrome, infection, aneurysm, or other serious etiology. The patient is neurologically intact. Given the extremely risk of these diagnoses further testing and evaluation for these possibilities does not appear to be indicated at this time. Patient has been instructed to return if the symptoms worsen or change in any way. - Vital Signs Vital signs: Temp Pulse Resp BP Pulse Ox 97.8 F 74 16 126/79 H 100 05/28/17 07:54 05/28/17 07:54 05/28/17 07:54 05/28/17 07:54 05/28/17 07:54 - Diagnostic Test Radiology reviewed: Reports reviewed Discharge - Discharge Clinical Impression: Low back pain Qualifiers: Chronicity: unspecified Back pain laterality: bilateral Sciatica presence: with sciatica Sciatica laterality: sciatica of right side Qualified Code(s): M54.41 - Lumbago with sciatica, right side Condition: Stable Disposition: HOME, SELF-CARE Instructions: Ice Packs ([facility]), Low Back Pain ([facility]), Oral Narcotic Medication ( [facility]), Sciatica ([facility]), Warm Packs ([facility]) Additional Instructions: Return immediately for any new or worsening symptoms Followup with your primary care provider, call tomorrow to make a followup appointment Prescriptions: Oxycodone HCl/Acetaminophen [Percocet 5-325 mg Tablet] 1 tab PO ASDIR PRN #15 tablet PRN Reason: Referrals: [facility] [Provider Group] - Follow up tomorrow
[2017-05-28 10:12] VITALS: BP 143/78
== END 2017-05-28 10:12 | disposition home or self-care (01) ==
LOC: ER 07:45
DX: M54.41 Lumbago with sciatica, right side (principal); F17.200 Nicotine dependence, unspecified, uncomplicated; E78.00 Pure hypercholesterolemia, unspecified; J44.9 Chronic obstructive pulmonary disease, unspecified; Z90.49 Acquired absence of other specified parts of digestive tract; Z90.710 Acquired absence of both cervix and uterus
CPT/HCPCS: 99283; 72110; A9270

== ENCOUNTER 2017-08-07 14:10 | Emergency (ER) | payer MEDICARE, MEDICAID ==
[2017-08-07 14:55] LABS: ABSOLUTE BASOPHILS # (AUTO) 0.1 10^3/uL (0.0-0.2); ABSOLUTE EOSINOPHILS # (AUTO) 0.2 10^3/uL (0.0-0.6); ABSOLUTE LYMPHOCYTES (AUTO) 1.9 10^3/uL (0.5-4.7); ABSOLUTE MONOCYTES (AUTO) 0.6 10^3/uL (0.1-1.4); ABSOLUTE NEUT (AUTO) 3.1 10^3/uL (1.7-8.2); BASOPHILS % (AUTO) 0.9 % (0-2); EOSINOPHILS % (AUTO) 3.5 % (0-6); HEMATOCRIT 34.8 % (36.0-47.0); HEMOGLOBIN 12.1 g/dL (12.0-15.5); HGB HCT DIFFERENCE 1.5; MEAN CORPUSCULAR HEMOGLOBIN 32.8 pg (27.0-33.4); MEAN CORPUSCULAR HGB CONC 34.9 g/dL (32.0-36.0); MEAN CORPUSCULAR VOLUME 94 fl (80-97); MONOCYTES % (AUTO) 10.4 % (3-13); RED CELL DISTRIBUTION WIDTH 13.1 % (11.5-14.0); SEGMENTED NEUTROPHILS % (AUTO) 53.2 % (42-78); WHITE BLOOD COUNT 5.9 10^3/uL (4.0-10.5)
[2017-08-07] MEDS ORDERED: RINGERS SOLUTION,LACTATED 1,000 ML IV ONE (15:17)
--- NOTE | 2017-08-07 15:17 | ER Document Report ---
ED General - General Chief Complaint: Passed Out Prior to Arrival Stated Complaint: DIZZINESS Time Seen by Provider: 08/07/17 15:04 Mode of Arrival: Medic Information source: Patient Notes: This is a 66-year-old female with a history of oral cancer (status post chemotherapy and radiation), COPD, migraines who presents to the emergency room with dizziness associated with fainting. Patient states she was cooking when she became dizzy, felt nauseous and sweaty and fainted. She does complain of some right knee pain she has an abrasion on her right knee. She does complain a headache consistent with prior migraines (not the worst headache of her life) . She does complain of some nausea. TRAVEL OUTSIDE OF THE [place] IN LAST 30 DAYS: No - HPI Onset: Just prior to arrival Onset/Duration: Gradual Quality of pain: No pain Severity: None Pain Level: Denies Associated symptoms: Nausea, Weakness. denies: Chills, Fever, Shortness of breath Relieved by: Denies Similar symptoms previously: No Recently seen / treated by doctor: No - Related Data Allergies/Adverse Reactions: hydromorphone HCl [From Dilaudid] Allergy (Verified 07/15/17 16:21) ketorolac tromethamine [From Toradol] Allergy (Verified 07/15/17 16:21) morphine [Morphine] Allergy (Verified 07/15/17 16:21) phenazopyridine HCl [From Pyridium] Allergy (Verified 07/15/17 16:21) tramadol [Tramadol] Allergy (Verified 07/15/17 16:21) iodine [Iodine] Adverse Reaction (Verified 07/15/17 16:21) prednisone Adverse Reaction (Verified 07/15/17 16:21) iv contrast Allergy (Uncoded 07/15/17 16:21) Past Medical History - General Information source: Patient - Social History Smoking Status: Former Smoker Cigarette use (# per day): No Chew tobacco use (# tins/day): No Frequency of alcohol use: None Drug Abuse: None Lives with: Family Family History: CAD, DM, Hyperlipidemia, Hypertension, Malignancy Patient has suicidal ideation: No Patient has homicidal ideation: No - Past Medical History Cardiac Medical History: Reports: Hx Hypercholesterolemia Pulmonary Medical History: Reports: Hx Asthma, Hx COPD Neurological Medical History: Reports: Hx Migraine Endocrine Medical History: Reports: Hx Hypothyroidism Renal/ Medical History: Denies: Hx Peritoneal Dialysis GI Medical History: Reports: Hx Gastroesophageal Reflux Disease Musculoskeltal Medical History: Reports Hx Arthritis, Reports Hx Musculoskeletal Deformity, Reports Hx Musculoskeletal Trauma Psychiatric Medical History: Reports: Hx Anxiety Past Surgical History: Reports: Hx Abdominal Surgery - Exploratory lap with removal of adhesions, bowel obstruction, Hx Appendectomy, Hx Cardiac Catheterization - SEVERAL YRS. AGO, Hx Cholecystectomy, Hx Gynecologic Surgery - oophorectomy, Hx Hysterectomy, Hx Tonsillectomy - Immunizations Hx Diphtheria, Pertussis, Tetanus Vaccination: No Review of Systems - Review of Systems Constitutional: denies: Chills, Fever EENT: No symptoms reported Cardiovascular: No symptoms reported Respiratory: No symptoms reported Gastrointestinal: No symptoms reported Genitourinary: No symptoms reported Female Genitourinary: No symptoms reported Musculoskeletal: No symptoms reported Skin: No symptoms reported Hematologic/Lymphatic: No symptoms reported Neurological/Psychological: See HPI Physical Exam - Vital signs Vitals: Resp BP Pulse Ox 12 144/84 H 100 08/07/17 14:30 08/07/17 14:30 08/07/17 14:30 Notes: Physical exam: GENERAL: 36-year-old female, alert and oriented 3, no acute distress. Blood pressure 128/68, pulse 60, O2 sat 100% on room air, respiratory rate 15. HEAD: Atraumatic, normocephalic. EYES: Pupils equal round and reactive to light, extraocular movements intact, sclera anicteric, conjunctiva are normal. ENT: TMs normal, nares patent, oropharynx clear without exudates. Moist mucous membranes. NECK: Normal range of motion, supple without obvious mass or JVD. LUNGS: Breath sounds clear to auscultation bilaterally and equal. No wheezes rales or rhonchi. HEART: Patient has a port in the right chest wall. Regular rate and rhythm without murmurs, rubs or gallops. ABDOMEN: Soft, normoactive bowel sounds. No tenderness to palpation. No guarding, no rebound. No masses appreciated. EXTREMITIES: Normal range of motion, no pitting or edema. No clubbing or cyanosis. NEUROLOGICAL: Cranial nerves II through XII grossly intact. Normal speech, moving all extremities. PSYCH: Normal mood, normal affect. SKIN: Patient over the right knee. Course - Vital Signs Vital signs: Temp Pulse Resp BP Pulse Ox 21 H 111/51 L 100 08/07/17 19:25 08/07/17 19:25 08/07/17 19:25 - Laboratory Result Diagrams: 08/07/17 14:35 08/07/17 14:35 Laboratory results interpreted by me: 08/07/17 08/07/17 08/07/17 14:35 14:35 17:30 RBC 3.70 L Hct 34.8 L Glucose 120 H Creatine Kinase 26 L Urine Blood SMALL H Discharge - Discharge Clinical Impression: Vasovagal episode, Right knee contusion Condition: Stable Disposition: HOME, SELF-CARE Instructions: Vasovagal Symptoms ([facility]) Additional Instructions: As we discussed, your labs do look good today. I want you to follow-up with your primary care doctor and bring a copy of today's lab work with you when you go. Thank you for choosing [facility] for your care. The examination and treatment you have received in the Emergency Department today has been rendered on an emergency basis only and is not intended to be a substitute for complete medical care. You should contact your follow-up physician as it is important that he or she examine you for any new or remaining problems. If given a copy of any lab tests or radiology reports, please bring them with you when you see your physician. If your problem worsens or new symptoms appear and you are unable to arrange prompt follow-up care, return to the Emergency Department. Specific signs to look out for: Worsening dizziness, chest pain, abdominal pain. Any other instructions: Drink plenty of fluids, continue educations. Follow-up with your primary care doctor. The pain medicine you're taking prescribed as a narcotic. There are several important things you should know about this medicine: 1. This medicine contains Tylenol: It is important that you do not take Tylenol (or acetaminophen) while on this medicine. Tylenol is metabolized by the liver and taking too much Tylenol (acetaminophen) can lay to liver damage and even liver failure. 2. Taking narcotics for too long can lead to physical and mental dependence. Take this medicine only if really needed and in the lowest quantity to achieve pain relief. 3. Do not drink alcohol while on this medicine. Alcohol interacts with narcotics and the combination can be dangerous. 4. Do not drive or operate machinery while on this medicine. 5. Narcotics do cause constipation, so drink plenty of fluids and daily stool softeners. Prescriptions: Oxycodone HCl/Acetaminophen [Percocet 5-325 mg Tablet] 1 - 2 tab PO ASDIR PRN # 15 tablet PRN Reason: Promethazine HCl [Phenergan 25 mg Tablet] 25 mg PO Q6H PRN #15 tablet PRN Reason:
[2017-08-07] MEDS ORDERED: OXYCODONE-ACETAMINOPHEN 5-325 MG TABLET PO ONE (15:18)
[2017-08-07] MEDS ORDERED: DIPHENHYDRAMINE HCL 50 MG/ML VIAL IV ONE (15:18)
[2017-08-07] MEDS ORDERED: METOCLOPRAMIDE HCL INJ/PF 10 MG/2 ML SDV IV ONE (15:18)
[2017-08-07 15:33] LABS: CREATINE KINASE MB < 0.22 ng/mL (<4.55); TROPONIN I < 0.012 ng/mL
[2017-08-07 15:39] LABS: ALANINE AMINOTRANSFERASE 25 U/L (9-52); ALBUMIN 3.7 g/dL (3.5-5.0); ALKALINE PHOSPHATASE 66 U/L (38-126); ANION GAP 7 (5-19); ASPARTATE AMINO TRANSFERASE 19 U/L (14-36); BILIRUBIN,DIRECT 0.4 mg/dL (0.0-0.4); BILIRUBIN,TOTAL 0.4 mg/dL (0.2-1.3); BLOOD UREA NITROGEN 14 mg/dL (7-20); CALCIUM 9.5 mg/dL (8.4-10.2); CARBON DIOXIDE 29 mmol/L (22-30); CHLORIDE 103 mmol/L (98-107); CREATINE KINASE 26 U/L (30-135); CREATININE RESULT 0.68 mg/dL (0.52-1.25); GLUCOSE 120 mg/dL (75-110); POTASSIUM 3.6 mmol/L (3.6-5.0); SODIUM 139.3 mmol/L (137-145); TOTAL PROTEIN 6.6 g/dL (6.3-8.2)
[2017-08-07 17:53] LABS: APPEARANCE,URINE CLEAR; BILIRUBIN,URINE NEGATIVE (NEGATIVE); GLUCOSE, URINE NEGATIVE (NEGATIVE); KETONES,URINE NEGATIVE (NEGATIVE); LEUKOCYTE ESTERASE,URINE NEGATIVE (NEGATIVE); NITRITE,URINE NEGATIVE (NEGATIVE); PROTEIN,URINE NEGATIVE (NEGATIVE); URINE SPECIFIC GRAVITY 1.004; UROBILINOGEN,URINE NEGATIVE mg/dL (<2.0)
[2017-08-07] MEDS ORDERED: HEPARIN SOD (PORCINE) 1 UNIT/ML PF 3 ML SYRINGE IV ONE (19:25)
[2017-08-07 19:43] VITALS: BP 111/51
--- NOTE | 2017-08-07 20:19 | EKG REPORT ---
SEVERITY:- NORMAL ECG - SINUS RHYTHM : Confirmed by: Nicholas Andersen MD 07-Aug-2017 20:17:54
== END 2017-08-07 19:43 | disposition home or self-care (01) ==
LOC: ER 14:10
DX: R55 Syncope and collapse (principal); S80.01XA Contusion of right knee, initial encounter; W18.39XA Other fall on same level, initial encounter; Y93.G3 Activity, cooking and baking; J44.9 Chronic obstructive pulmonary disease, unspecified; R51 Headache; R11.0 Nausea; R53.1 Weakness; Z85.819 Personal history of malignant neoplasm of unspecified site of lip, oral cavity, and pharynx; Z92.21 Personal history of antineoplastic chemotherapy; Z92.3 Personal history of irradiation; Z88.5 Allergy status to narcotic agent; Z88.8 Allergy status to other drugs, medicaments and biological substances; Z88.6 Allergy status to analgesic agent; Z91.041 Radiographic dye allergy status; Z87.891 Personal history of nicotine dependence
CPT/HCPCS: 93005; 36591; 99284; 96361; 96374; 96375; 36415; 82553; 82550; 85025; 80053; 81001; 84484; 93010; J1200; J2765; A9270; J7120

== ENCOUNTER → 2017-08-14 | Outpatient (CLI) | payer MEDICARE, MEDICAID ==
--- NOTE | 2017-08-14 20:55 | RADIOLOGY REPORT (SQ) ---
EXAM DESCRIPTION: MRI HEAD WITHOUT COMPLETED DATE/TIME: 08/14/2017 8:32 pm REASON FOR STUDY: Migraine without aura, not intractable, without status migrainosus G43.009 MIGRAI NE W/O AURA, NOT INTRACTABLE, W/O STATUS MIGRA COMPARISON: None. TECHNIQUE: Multiplanar imaging includes non-contrasted T1, T2, FLAIR, and Diffusion with ADC map seq uences. Images stored on PACS. LIMITATIONS: None. FINDINGS: ANATOMY: No anomalies. Normal vascular flow voids. Pituitary fossa normal. CSF SPACES: Normal in size and contour. No hemorrhage. CEREBRUM: A few high-signal intensity lesions scattered throughout the white matter on FLAIR imaging with distribution suggesting chronic micro-vascular ischemic change. Sulci and gyri normal in size a nd contour. No evidence of hemorrhage, mass or extraaxial fluid collection. POSTERIOR FOSSA: No signal alteration. No hemorrhage. No edema, masses or mass effect. Internal leonid tory canals, cerebello-pontine angles, mastoids normal. DIFFUSION: Negative for acute or sub-acute infarction. ORBITS: No masses. Globes normal. PARANASAL SINUSES: No fluid levels. Mucosa normal. OTHER: No other significant finding. IMPRESSION: MINIMAL MICROVASCULAR ISCHEMIC CHANGE. OTHERWISE NORMAL STUDY. EVIDENCE OF ACUTE STROKE: NO. TECHNICAL DOCUMENTATION: JOB ID: [id number] [employer]- All Rights Reserved
== END ==
LOC: RAD 19:36
PROVIDERS: ATTEND Specialist
DX: G43.009 Migraine without aura, not intractable, without status migrainosus (principal)
CPT/HCPCS: 70551

== ENCOUNTER → 2017-10-14 | Outpatient (CLI) | payer MEDICARE, MEDICAID ==
--- NOTE | 2017-10-14 13:14 | RADIOLOGY REPORT (SQ) ---
EXAM DESCRIPTION: MRI CERVICAL SPINE WITHOUT COMPLETED DATE/TIME: 10/14/2017 11:25 am REASON FOR STUDY: R22.1 LOCALIZED SWELLING, MASS AND LUMP, NECK R22.1 LOCALIZED SWELLING, MASS AND LUMP, NECK COMPARISON: Cervical spine plain films 06/03/2016 MRI brain 08/14/2017 TECHNIQUE: Sagittal and Axial imaging includes T1, T2, STIR and gradient echo sequences. LIMITATIONS: None. FINDINGS: ALIGNMENT: Normal. VERTEBRAE: Intact. BONE MARROW: There is fatty marrow change from the skullbase down to the T4 level, likely related to remote prior radiation therapy for tongue malignancy DISCS: Diffuse decreased T2 weighted intervertebral disc signal. Mild disc space loss of height at C 6-7 HARDWARE: None in the spine. CORD AND BASE OF BRAIN: Normal in size and signal intensity. SOFT TISSUES: No soft tissue masses. C1-C2: No significant spinal stenosis. C2-C3: No significant spinal stenosis or exit foraminal stenosis. C3-C4: No significant spinal stenosis or exit foraminal stenosis. Minimal posterior disc bulging. C4-C5: No significant spinal stenosis or exit foraminal stenosis. C5-C6: No significant spinal stenosis or exit foraminal stenosis. Minimal posterior disc bulging C6-C7: Mild diffuse posterior disc bulge is present partly effacing the ventral thecal sac. No cord flattening. No significant central stenosis. Mild bilateral foraminal narrowing from facet and unco vertebral hypertrophy C7-T1: No significant spinal stenosis or exit foraminal stenosis. UPPER THORACIC: Incompletely imaged. No significant spinal stenosis or exit foraminal stenosis. OTHER: No other significant finding. IMPRESSION: No high-grade central or foraminal encroachment. TECHNICAL DOCUMENTATION: JOB ID: [id number] [employer]- All Rights Reserved
== END ==
LOC: RAD 11:15
PROVIDERS: ATTEND Specialist
DX: R22.1 Localized swelling, mass and lump, neck (principal)
CPT/HCPCS: 72141

== ENCOUNTER 2018-05-12 01:36 | Emergency (ER) | payer MEDICARE, MEDICAID ==
[2018-05-12] MEDS ORDERED: ASPIRIN 81 MG TABLET, CHEWABLE PO ONE (02:54)
[2018-05-12] MEDS ORDERED: OXYCODONE-ACETAMINOPHEN 5-325 MG TABLET PO ONE (02:56)
--- NOTE | 2018-05-12 02:58 | ER Document Report ---
ED General <ARNALDO GARIBAY - Last Filed: 05/12/18 08:41> - General Information source: Patient TRAVEL OUTSIDE OF THE [place] IN LAST 30 DAYS: No <EZEKIEL MARSHALLPRIYANKAMARIBEL - Last Filed: 05/12/18 19:18> - General Chief Complaint: Chest Pain Stated Complaint: CHEST PAIN Time Seen by Provider: 05/12/18 02:36 Notes: Patient is a 67-year-old female presenting to the emergency department complaining of left-sided chest pain. Patient stated that this morning after waking up she noticed she had pain in her left chest radiating to her left shoulder, left neck and upper left arm. Patient states pain increases with deep inspiration and any kind of movement. Patient denies any trauma or injury. Patient denies nausea, vomiting, fever, URI symptoms. States has a history of migraines but denies headache at this point in time. History of tongue cancer, asthma, hypothyroid. States she is allergic to morphine, Dilaudid, Toradol, tramadol. Patient denies smoking denies illicit drug use denies EtOH use. (SCHUYLER MARSHALL) - Related Data Allergies/Adverse Reactions: hydromorphone HCl [From Dilaudid] Allergy (Verified 07/15/17 16:21) ketorolac tromethamine [From Toradol] Allergy (Verified 07/15/17 16:21) morphine [Morphine] Allergy (Verified 07/15/17 16:21) phenazopyridine HCl [From Pyridium] Allergy (Verified 07/15/17 16:21) tramadol [Tramadol] Allergy (Verified 07/15/17 16:21) iodine [Iodine] Adverse Reaction (Verified 07/15/17 16:21) prednisone Adverse Reaction (Verified 07/15/17 16:21) iv contrast Allergy (Uncoded 07/15/17 16:21) Past Medical History - General Information source: Patient - Social History Smoking Status: Former Smoker Lives with: Family Family History: CAD, DM, Hyperlipidemia, Hypertension, Malignancy - Past Medical History Cardiac Medical History: Reports: Hx Hypercholesterolemia Pulmonary Medical History: Reports: Hx Asthma, Hx COPD Neurological Medical History: Reports: Hx Migraine Endocrine Medical History: Reports: Hx Hypothyroidism Renal/ Medical History: Denies: Hx Peritoneal Dialysis GI Medical History: Reports: Hx Gastroesophageal Reflux Disease Musculoskeletal Medical History: Reports Hx Arthritis, Reports Hx Musculoskeletal Deformity, Reports Hx Musculoskeletal Trauma Psychiatric Medical History: Reports: Hx Anxiety Past Surgical History: Reports: Hx Abdominal Surgery - Exploratory lap with removal of adhesions, bowel obstruction, Hx Appendectomy, Hx Cardiac Catheterization - SEVERAL YRS. AGO, Hx Cholecystectomy, Hx Gynecologic Surgery - oophorectomy, Hx Hysterectomy, Hx Tonsillectomy - Immunizations Hx Diphtheria, Pertussis, Tetanus Vaccination: No <JOANNAEZEKIELPRIYANKAMARIBEL - Last Filed: 05/12/18 19:18> Review of Systems - Review of Systems Constitutional: See HPI EENT: See HPI Cardiovascular: See HPI Respiratory: See HPI Gastrointestinal: See HPI Genitourinary: See HPI Female Genitourinary: No symptoms reported Musculoskeletal: See HPI Skin: No symptoms reported Hematologic/Lymphatic: No symptoms reported Neurological/Psychological: No symptoms reported <JOANNAEZEKIELPRIYANKAMARIBEL - Last Filed: 05/12/18 19:18> Physical Exam <ARNALDO GARIBAY - Last Filed: 05/12/18 08:41> <SCHUYLER MARSHALL - Last Filed: 05/12/18 19:18> - Vital signs Vitals: Temp Pulse Resp BP Pulse Ox 97.7 F 71 16 176/91 H 99 05/12/18 01:58 05/12/18 01:58 05/12/18 01:58 05/12/18 01:58 05/12/18 01:58 - Notes Notes: GENERAL: Alert, interacts well. No acute distress. HEAD: Normocephalic, atraumatic. EYES: Pupils equal, round, and reactive to light. Extraocular movements intact. ENT: Oral mucosa moist, tongue midline. NECK: Full range of motion. Supple. Trachea midline. No cervical tenderness, left paraspinal tenderness, increases with movement and palpation. LUNGS: Clear to auscultation bilaterally, no wheezes, rales, or rhonchi. No respiratory distress. HEART: Regular rate and rhythm. No murmur ABDOMEN: Soft, non-tender. Non-distended. Bowel sounds present in all 4 quadrants. EXTREMITIES: Moves all 4 extremities spontaneously. Increased pain left shoulder on passive and active range of motion. Patient able to do full range of motion, just with pain. No edema, normal radial and dorsalis pedis pulses bilaterally. No cyanosis. BACK: no cervical, thoracic, lumbar midline tenderness. No saddle anesthesia, normal distal neurovascular exam. NEUROLOGICAL: Alert and oriented x3. Normal speech. [cranial nerves II through XII grossly intact]. PSYCH: Normal affect, normal mood. SKIN: Warm, dry, normal turgor. No rashes or lesions noted. (SCHUYLER MARSHALL) Course - Laboratory Result Diagrams: 05/12/18 04:15 05/12/18 04:15 <ARNALDO GARIBAY - Last Filed: 05/12/18 08:41> - Laboratory Result Diagrams: 05/12/18 04:15 05/12/18 04:15 <SCHUYLER MARSHALL - Last Filed: 05/12/18 19:18> - Re-evaluation Re-evalutation: 05/12/18 07:05 Assumed care of the patient at the bedside the second troponin will be drawn at 715 and Tylenol is being given at this time. 05/12/18 08:42 Second troponin is negative. The Tylenol did not help ease the pain. She is very tender left sternocleidomastoid and trapezius muscle and left pectoral muscle. She stated the Percocet she got earlier tonight did help a little bit she has no primary care doctor here. She normally goes to [place]. I gave her a referral to Dr. Mg is on discharge medical for the ER today. (ARNALDO GARIBAY) Patient states left sided chest, shoulder, neck pain has gotten better. Patient stated she has an upset stomach, she is denying nausea, stating it is more of an indigestion feeling. Spoke with patient about lab results and initial troponin, patient asking for something to eat. Initial EKG reveals no ST segment changes or T-wave inversions. QTC 496 which normalized 461 upon repeat EKG. Chest x-ray unremarkable. Patient has obvious reproducible chest wall pain on exam, low suspicion for ACS, aortic dissection, PE. Patient continues to deny shortness of breath and is not tachycardic. Patient has a heart score of 2, if repeat troponin is also negative will discharge with musculoskeletal pain. Discussed lab and imaging results with patient in detail. Return precautions given. (SCHUYLER MARSHALL) - Vital Signs Vital signs: Temp Pulse Resp BP Pulse Ox 97.7 F 71 16 123/77 98 05/12/18 01:58 05/12/18 01:58 05/12/18 09:01 05/12/18 09:01 05/12/18 08:08 - Laboratory Laboratory results interpreted by me: 05/12/18 05/12/18 04:15 04:15 Monocytes % 13.4 H Eosinophils % 6.4 H Chloride 108 H BUN 25 H Discharge <GLORIALAVERNJAIMEARNALDO - Last Filed: 05/12/18 08:41> <SCHUYLER MARSHALL - Last Filed: 05/12/18 19:18> - Discharge Clinical Impression: left neck pain tenderness, Chest wall pain Chest pain Qualifiers: Chest pain type: unspecified Qualified Code(s): R07.9 - Chest pain, unspecified Left shoulder pain Qualifiers: Chronicity: acute Qualified Code(s): M25.512 - Pain in left shoulder Condition: Good Disposition: HOME, SELF-CARE Instructions: Chest Wall Pain ([facility]), Family Physicians / Practices Additional Instructions: You have been treated in the emergency department for chest pain, chest wall pain, left shoulder, left neck pain. As discussed your EKG and labs were within normal limits. You should take Tylenol as prescribed, use heating pads, or moist heat to neck and shoulder area. Return to the emergency department should pain increase, you develop shortness of breath, vomiting, fever, dizziness or lightheadedness. Follow-up with primary care in 24-48 hours. Referral to family practice doctor in this area Warm compress to the sore muscles Tylenol up to 4000 mg a day for pain Prescriptions: Oxycodone HCl [Oxy-Ir 5 mg Tablet] 5 mg PO Q4HP PRN #10 tab PRN Reason: Acetaminophen [Tylenol 325 mg Tablet] 650 mg PO Q6HP PRN #60 tablet PRN Reason: Referrals: TERI MG MD [ACTIVE STAFF] - Follow up tomorrow
--- NOTE | 2018-05-12 03:23 | RADIOLOGY REPORT (SQ) ---
Chest single view on 05/12/2018 at 3:05 AM CLINICAL INDICATION: Chest pain COMPARISON: 07/15/2017 FINDINGS: Right IJ Port-A-Cath tip is near the cavoatrial junction. Emphysematous changes of the lungs are noted. Lungs are otherwise clear. Cardiac, hilar and mediastinal contours are within normal limits. Pulmonary vascularity is within normal limits. No bony abnormality is noted. IMPRESSION: No acute disease.
[2018-05-12 04:21] LABS: ABSOLUTE BASOPHILS # (AUTO) 0.1 10^3/uL (0.0-0.2); ABSOLUTE EOSINOPHILS # (AUTO) 0.4 10^3/uL (0.0-0.6); ABSOLUTE LYMPHOCYTES (AUTO) 1.7 10^3/uL (0.5-4.7); ABSOLUTE MONOCYTES (AUTO) 0.8 10^3/uL (0.1-1.4); ABSOLUTE NEUT (AUTO) 2.9 10^3/uL (1.7-8.2); BASOPHILS % (AUTO) 0.9 % (0-2); EOSINOPHILS % (AUTO) 6.4 % (0-6); HEMATOCRIT 36.9 % (36.0-47.0); HEMOGLOBIN 12.6 g/dL (12.0-15.5); MEAN CORPUSCULAR HEMOGLOBIN 32.2 pg (27.0-33.4); MEAN CORPUSCULAR HGB CONC 34.2 g/dL (32.0-36.0); MEAN CORPUSCULAR VOLUME 94 fl (80-97); MONOCYTES % (AUTO) 13.4 % (3-13); PLATELET COUNT 251 10^3/uL (150-450); RED BLOOD COUNT 3.92 10^6/uL (3.72-5.28); RED CELL DISTRIBUTION WIDTH 12.9 % (11.5-14.0); SEGMENTED NEUTROPHILS % (AUTO) 50.3 % (42-78); TOTAL CELLS COUNTED % (AUTO) 100 %; WHITE BLOOD COUNT 5.7 10^3/uL (4.0-10.5)
[2018-05-12 04:39] LABS: ALANINE AMINOTRANSFERASE 26 U/L (9-52); ALKALINE PHOSPHATASE 73 U/L (38-126); ANION GAP 11 (5-19); ASPARTATE AMINO TRANSFERASE 23 U/L (14-36); BILIRUBIN,DIRECT 0.3 mg/dL (0.0-0.4); BILIRUBIN,TOTAL 0.3 mg/dL (0.2-1.3); BLOOD UREA NITROGEN 25 mg/dL (7-20); CALCIUM 9.8 mg/dL (8.4-10.2); CARBON DIOXIDE 24 mmol/L (22-30); CHLORIDE 108 mmol/L (98-107); CREATINE KINASE 58 U/L (30-135); GLUCOSE 105 mg/dL (75-110); SODIUM 142.5 mmol/L (137-145); TOTAL PROTEIN 7.4 g/dL (6.3-8.2)
[2018-05-12 04:50] LABS: CREATINE KINASE MB 0.63 ng/mL (<4.55)
[2018-05-12 04:52] LABS: TROPONIN I < 0.012 ng/mL
[2018-05-12] MEDS ORDERED: FAMOTIDINE 20 MG TABLET PO ONE (05:52)
[2018-05-12] MEDS ORDERED: SUCRALFATE 1 GM TABLET PO ONE (05:52)
[2018-05-12] MEDS ORDERED: ACETAMINOPHEN 325 MG TABLET PO ONE (06:33)
--- NOTE | 2018-05-12 08:11 | EKG REPORT ---
SEVERITY:- BORDERLINE ECG - SINUS RHYTHM BORDERLINE PROLONGED QT INTERVAL : Confirmed by: Nicholas Andersen MD 12-May-2018 08:10:56
--- NOTE | 2018-05-12 08:11 | EKG REPORT ---
SEVERITY:- ABNORMAL ECG - SINUS RHYTHM MULTIPLE VENTRICULAR PREMATURE COMPLEXES : Confirmed by: Nicholas Andersen MD 12-May-2018 08:10:47
[2018-05-12] MEDS ORDERED: OXYCODONE HCL IR 5 MG TABLET PO ONE (08:42)
[2018-05-12 09:03] VITALS: BP 123/77
== END 2018-05-12 09:28 | disposition home or self-care (01) ==
LOC: ER 01:36
DX: R07.9 Chest pain, unspecified (principal); R07.89 Other chest pain; M25.512 Pain in left shoulder; M54.2 Cervicalgia; M79.602 Pain in left arm; Z87.891 Personal history of nicotine dependence; J44.9 Chronic obstructive pulmonary disease, unspecified
CPT/HCPCS: 93005; 36591; 99285; 36415; 82553; 82550; 83735; 85025; 80053; 84484; 71045; 93010; A9270 ×6

== ENCOUNTER → 2018-06-04 | Outpatient (CLI) | payer MEDICARE, MEDICAID ==
--- NOTE | 2018-06-04 13:37 | RADIOLOGY REPORT (SQ) ---
EXAM DESCRIPTION: MRI CERVICAL SPINE WITHOUT COMPLETED DATE/TIME: 06/04/2018 1:07 pm REASON FOR STUDY: CERVICAL RADICULOPATHY (M54.12) M54.12 RADICULOPATHY, CERVICAL REGION COMPARISON: Cervical spine MRI 10/14/2017, Plain films 06/03/2016 TECHNIQUE: Sagittal and Axial imaging includes T1, T2, STIR and gradient echo sequences. LIMITATIONS: None. FINDINGS: ALIGNMENT: Normal. VERTEBRAE: Intact. BONE MARROW: There is fatty marrow change at the skullbase down to the C5 level likely due to [facility] head and neck radiation therapy treatments DISCS: Diffuse decreased T2 weighted intervertebral disc signal. Mild disc space loss of height at C 6-7 HARDWARE: None in the spine. CORD AND BASE OF BRAIN: Normal in size and signal intensity. SOFT TISSUES: No soft tissue masses. C1-C2: No significant spinal stenosis. C2-C3: No significant spinal stenosis or exit foraminal stenosis. C3-C4: No significant spinal stenosis or exit foraminal stenosis. Mild posterior disc bulging is pre sent C4-C5: No significant spinal stenosis or exit foraminal stenosis. Minimal posterior disc bulging is present C5-C6: No significant spinal stenosis or exit foraminal stenosis. Minimal posterior disc bulging is present C6-C7: Mild diffuse posterior disc bulge and bony spurring partially effaces the ventral thecal sac w ithout cord flattening or abnormal intrinsic cord signal. No central canal narrowing. Moderate bila teral foraminal narrowing from facet and uncovertebral hypertrophy. C7-T1: No significant spinal stenosis or exit foraminal stenosis. UPPER THORACIC: Incompletely imaged. No significant spinal stenosis or exit foraminal stenosis. OTHER: No other significant finding. IMPRESSION: Mild degenerative disc changes at C6-7. TECHNICAL DOCUMENTATION: JOB ID: [id number] [employer]- All Rights Reserved Reading location - IP/workstation name: [email or web address]
== END ==
LOC: RAD 12:19
PROVIDERS: ATTEND Internal Medicine
DX: M54.12 Radiculopathy, cervical region (principal); M47.892 Other spondylosis, cervical region
CPT/HCPCS: 72141

== ENCOUNTER → 2018-06-12 | Outpatient (CLI) | payer MEDICARE, MEDICAID ==
--- NOTE | 2018-06-12 10:53 | RADIOLOGY REPORT (SQ) ---
EXAM DESCRIPTION: SHOULDER BILAT 2 OR MORE VIEWS COMPLETED DATE/TIME: 06/12/2018 9:20 am REASON FOR STUDY: BILAT SHOULDER PAIN (M25.511, M25.512) COMPARISON: None. FINDINGS: Three views right shoulder: Internal and external AP. Scapular Y. Normal study. Three views left shoulder: Internal and external AP. Scapular Y. Normal study. TECHNICAL DOCUMENTATION: JOB ID: [id number] Reading location - IP/workstation name: [email or web address]
== END ==
LOC: RAD 09:05
PROVIDERS: ATTEND Internal Medicine
DX: M25.511 Pain in right shoulder (principal); M25.512 Pain in left shoulder

== ENCOUNTER → 2018-07-08 | Outpatient (CLI) | payer MEDICARE, MEDICAID ==
--- NOTE | 2018-07-08 16:38 | RADIOLOGY REPORT (SQ) ---
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 TECHNIQUE: Dynamic and static barker-scale images acquired of the thyroid gland. Selected additional c olor/power Doppler images recorded. All images stored to PACS. LIMITATIONS: None. FINDINGS: RIGHT LOBE: Normal size. Homogeneous echotexture. Small, 6 mm, complex cyst. LEFT LOBE: Normal size. Homogeneous echotexture. No cystic or solid masses. ISTHMUS: Normal size. Homogeneous echotexture. No cystic or solid masses. OTHER: No other significant finding. IMPRESSION: SMALL, 6 MM, COMPLEX CYST IN THE RIGHT LOBE OF THE THYROID. NO SOLID MASSES. TECHNICAL DOCUMENTATION: JOB ID: [id number] [employer]- All Rights Reserved Reading location - IP/workstation name: [email or web address]
== END ==
LOC: RAD 15:03
PROVIDERS: ATTEND Internal Medicine
DX: E01.0 Iodine-deficiency related diffuse (endemic) goiter (principal)
CPT/HCPCS: 76536

== ENCOUNTER 2018-07-24 00:17 | Emergency (ER) | payer MEDICARE, MEDICAID ==
[2018-07-24] MEDS ORDERED: METOCLOPRAMIDE HCL INJ/PF 10 MG/2 ML SDV IV ONE (01:50)
[2018-07-24] MEDS ORDERED: LORAZEPAM INJ 2 MG/1 ML VIAL IV ONE (01:51)
--- NOTE | 2018-07-24 01:53 | ER Document Report ---
ED General <CHAPIS ZAVALA - Last Filed: 07/24/18 03:02> - General Mode of Arrival: Ambulatory Information source: Patient TRAVEL OUTSIDE OF THE [place] IN LAST 30 DAYS: No <SHARIF CALLOWAY - Last Filed: 07/24/18 05:18> - General Chief Complaint: Chest Pain Stated Complaint: CHEST PAIN Time Seen by Provider: 07/24/18 01:18 Notes: Patient is a 67 year old female with tongue cancer presents to the emergency department complaining of chest pain onset a few hours ago. Patient states she was watching TV at the onset of her chest pain. She states she has a history of chest pain although her current chest pain is different further stating "it feels stronger". She also states the chest pain radiates into her left neck and shoulder. She also complains of 4 episodes of vomiting since the onset of her pain. Patient's PCP is Dr. Torres. Patient states she has had radiation treatment. Patient is currently prescribed 10 mg of percocet, 4x daily, due to neck and back pain. (SHARIF CALLOWAY) - Related Data Allergies/Adverse Reactions: hydromorphone HCl [From Dilaudid] Allergy (Verified 07/15/17 16:21) ketorolac tromethamine [From Toradol] Allergy (Verified 07/15/17 16:21) morphine [Morphine] Allergy (Verified 07/15/17 16:21) phenazopyridine HCl [From Pyridium] Allergy (Verified 07/15/17 16:21) tramadol [Tramadol] Allergy (Verified 07/15/17 16:21) iodine [Iodine] Adverse Reaction (Verified 07/15/17 16:21) prednisone Adverse Reaction (Verified 07/15/17 16:21) iv contrast Allergy (Uncoded 07/15/17 16:21) Past Medical History - General Information source: Patient - Social History Smoking Status: Former Smoker Cigarette use (# per day): No Chew tobacco use (# tins/day): No Smoking Education Provided: No Family History: CAD, DM, Hyperlipidemia, Hypertension, Malignancy - Past Medical History Cardiac Medical History: Reports: Hx Hypercholesterolemia Pulmonary Medical History: Reports: Hx Asthma, Hx COPD Neurological Medical History: Reports: Hx Migraine Endocrine Medical History: Reports: Hx Hypothyroidism Malignancy Medical History: Reports: Other - tongue cancer GI Medical History: Reports: Hx Gastroesophageal Reflux Disease Musculoskeletal Medical History: Reports Hx Arthritis, Reports Hx Musculoskeletal Deformity, Reports Hx Musculoskeletal Trauma Psychiatric Medical History: Reports: Hx Anxiety Past Surgical History: Reports: Hx Abdominal Surgery - Exploratory lap with removal of adhesions, bowel obstruction, Hx Appendectomy, Hx Cardiac Catheterization - SEVERAL YRS. AGO, Hx Cholecystectomy, Hx Gynecologic Surgery - oophorectomy, Hx Hysterectomy, Hx Tonsillectomy - Immunizations Hx Diphtheria, Pertussis, Tetanus Vaccination: No <SHARIF CALOLWAY - Last Filed: 07/24/18 05:18> Review of Systems - Review of Systems Constitutional: No symptoms reported EENT: No symptoms reported Cardiovascular: See HPI, Chest pain Gastrointestinal: No symptoms reported Genitourinary: No symptoms reported Female Genitourinary: No symptoms reported Musculoskeletal: See HPI, Neck pain Skin: No symptoms reported Hematologic/Lymphatic: No symptoms reported Neurological/Psychological: No symptoms reported -: Yes All other systems reviewed and negative <SHARIF CALLOWAY - Last Filed: 07/24/18 05:18> Physical Exam <CHAPIS ZAVALA - Last Filed: 07/24/18 03:02> <SHARIF CALLOWAY - Last Filed: 07/24/18 05:18> - Vital signs Vitals: Temp Pulse Resp BP Pulse Ox 98.9 F 81 18 160/93 H 100 07/24/18 00:17 07/24/18 00:17 07/24/18 00:17 07/24/18 00:17 07/24/18 00:17 - Notes Notes: GENERAL: Alert, Appears uncomfortable, moaning in bed. HEAD: Normocephalic, atraumatic. EYES: Pupils equal, round, and reactive to light. Extraocular movements intact. ENT: Oral mucosa moist, tongue midline. NECK: Full range of motion. Supple. Trachea midline. Tender to palpation to the left posterior cervical muscles and left trapezius. LUNGS: Clear to auscultation bilaterally, no wheezes, rales, or rhonchi. No respiratory distress. Port in right upper chest wall. Tender to palpation to the left anterior chest wall. HEART: Regular rate and rhythm. No murmurs, gallops, or rubs. ABDOMEN: Soft, non-tender. Non-distended. Bowel sounds present in all 4 quadrants. EXTREMITIES: Moves all 4 extremities spontaneously. NEUROLOGICAL: Alert and oriented x3. Normal speech. PSYCH: Depressed. Moaning in bed, tearful. Frequently places hand on forehead. SKIN: Warm, dry, normal turgor. Scarring consistent with history of radiation to the left neck and left clavicle area. (SHARIF CALLOWAY) Course - Laboratory Result Diagrams: 07/24/18 01:51 07/24/18 01:51 - Diagnostic Test Radiology reviewed: Image reviewed, Reports reviewed - Chest x-ray does not show acute cardiopulmonary process. - EKG Interpretation by Me EKG shows normal: Sinus rhythm, [place], Intervals, QRS Complexes, ST-T Waves Rate: Normal - 73 Rhythm: NSR <CHAPIS ZAVALA - Last Filed: 07/24/18 03:02> - Laboratory Result Diagrams: 07/24/18 01:51 07/24/18 01:51 <SHARIF CALLOWAY - Last Filed: 07/24/18 05:18> - Re-evaluation Re-evalutation: 07/24/18 03:04 The patient seems much more relaxed now after the IV Ativan and the Reglan. When first seen she was quite anxious and seem to be working herself up to the point of vomiting. She will be discharged with some Zofran to take for nausea if needed at home. (CHAPIS ZAVALA) - Vital Signs Vital signs: Temp Pulse Resp BP Pulse Ox 98.9 F 81 10 L 133/86 H 95 07/24/18 00:17 07/24/18 00:17 07/24/18 03:00 07/24/18 03:00 07/24/18 03:00 - Laboratory Laboratory results interpreted by me: 07/24/18 01:51 RBC 3.62 L Hgb 11.5 L Hct 34.2 L Monocytes % 14.0 H Discharge <CHAPIS ZAVALA - Last Filed: 07/24/18 03:02> <SHARIF CALLOWAY - Last Filed: 07/24/18 05:18> - Discharge Clinical Impression: Chest wall pain Nausea and vomiting Qualifiers: Vomiting type: unspecified Vomiting Intractability: non-intractable Qualified Code(s): R11.2 - Nausea with vomiting, unspecified Condition: Stable Disposition: HOME, SELF-CARE Additional Instructions: Chest Wall Pain Your chest pain has been diagnosed as coming from the chest wall. This is often caused by straining the muscles or joints in the chest during physical activity, direct trauma, coughing, or vigorous vomiting. Persons with arthritis are especially prone to this type of pain, due to inflammation of the cartilage joints near the breast bone. Occasionally, no cause can be found. Rest from strenuous physical activity. This kind of chest pain is usually made worse by movement of the chest. Depending on the symptoms, we may prescribe medicine for pain, muscle relaxation, and antiinflammatory effects. If the pain is new, and seems to be due to muscle strain, cold packs can help. Otherwise, apply gentle warmth to the painful area for 15 minutes every hour or two. You should contact the doctor immediately if things change. Further evaluation is needed if you develop a fever or cough, if the nature of the pain changes, or if you become short of breath. Follow-up with your doctor in the office today for recheck if not feeling better. Take the Zofran as dispensed for nausea if needed this morning. RETURN TO THE EMERGENCY ROOM IF ANY NEW OR WORSENING SYMPTOMS. Referrals: JENNIFER TORRES MD [Primary Care Provider] - Follow up as needed Scribe Attestation: 07/24/18 02:07 I personally performed the services described in the documentation, reviewed and edited the documentation which was dictated to the scribe in my presence, and it accurately records my words and actions. (CHAPIS ZAVALA) Scribe Documentation - Scribe Written by Ralph:: Ralph Whittaker, 07/24/2018 02:03 acting as scribe for :: Corrine <SHARIF CALLOWAY - Last Filed: 07/24/18 05:18>
[2018-07-24 02:02] LABS: ABSOLUTE BASOPHILS # (AUTO) 0.1 10^3/uL (0.0-0.2); ABSOLUTE EOSINOPHILS # (AUTO) 0.3 10^3/uL (0.0-0.6); ABSOLUTE LYMPHOCYTES (AUTO) 1.8 10^3/uL (0.5-4.7); ABSOLUTE MONOCYTES (AUTO) 0.7 10^3/uL (0.1-1.4); ABSOLUTE NEUT (AUTO) 2.2 10^3/uL (1.7-8.2); BASOPHILS % (AUTO) 1.4 % (0-2); EOSINOPHILS % (AUTO) 5.3 % (0-6); HEMATOCRIT 34.2 % (36.0-47.0); HEMOGLOBIN 11.5 g/dL (12.0-15.5); LYMPHOCYTES % (AUTO) 35.5 % (13-45); MEAN CORPUSCULAR HEMOGLOBIN 31.8 pg (27.0-33.4); MEAN CORPUSCULAR HGB CONC 33.7 g/dL (32.0-36.0); MEAN CORPUSCULAR VOLUME 94 fl (80-97); PLATELET COUNT 288 10^3/uL (150-450); RED BLOOD COUNT 3.62 10^6/uL (3.72-5.28); SEGMENTED NEUTROPHILS % (AUTO) 43.8 % (42-78); TOTAL CELLS COUNTED % (AUTO) 100 %; WHITE BLOOD COUNT 5.1 10^3/uL (4.0-10.5)
--- NOTE | 2018-07-24 02:02 | RADIOLOGY REPORT (SQ) ---
EXAM DESCRIPTION: XR CHEST 1 VIEW COMPLETED DATE/TME: 07/24/2018 01:28 CLINICAL HISTORY: 67 years, Female, Chest pain COMPARISON: None. NUMBER OF VIEWS: 1 TECHNIQUE: Frontal view the chest LIMITATIONS: None. FINDINGS: The heart size is normal. [id number] catheter in place. Osteopenia. Lungs are clear. No pneumothorax IMPRESSION: No acute cardiopulmonary process 2010 [employer]- All Rights Reserved
[2018-07-24 02:22] LABS: ALANINE AMINOTRANSFERASE 15 U/L (9-52); ALBUMIN 3.8 g/dL (3.5-5.0); ALKALINE PHOSPHATASE 68 U/L (38-126); ANION GAP 9 (5-19); ASPARTATE AMINO TRANSFERASE 28 U/L (14-36); BILIRUBIN,DIRECT 0.2 mg/dL (0.0-0.4); BILIRUBIN,TOTAL 0.2 mg/dL (0.2-1.3); BLOOD UREA NITROGEN 17 mg/dL (7-20); CALCIUM 9.5 mg/dL (8.4-10.2); CARBON DIOXIDE 29 mmol/L (22-30); CHLORIDE 104 mmol/L (98-107); CREATINE KINASE 44 U/L (30-135); GLUCOSE 98 mg/dL (75-110); POTASSIUM 4.2 mmol/L (3.6-5.0); SODIUM 142.3 mmol/L (137-145); TOTAL PROTEIN 7.1 g/dL (6.3-8.2)
[2018-07-24 02:30] LABS: TROPONIN I < 0.012 ng/mL
[2018-07-24] MEDS ORDERED: ONDANSETRON ODT 4 MG TAB (6 TAB/ER DISP) PO PRN (03:06)
[2018-07-24 03:07] VITALS: BP 133/86
--- NOTE | 2018-07-24 09:02 | EKG REPORT ---
SEVERITY:- NORMAL ECG - SINUS RHYTHM : Confirmed by: Bran Sherman 24-Jul-2018 09:01:48
== END 2018-07-24 03:19 | disposition home or self-care (01) ==
LOC: ER 00:17
DX: R07.89 Other chest pain (principal); R11.2 Nausea with vomiting, unspecified; M54.2 Cervicalgia; M25.512 Pain in left shoulder; E78.00 Pure hypercholesterolemia, unspecified; J44.9 Chronic obstructive pulmonary disease, unspecified; E03.9 Hypothyroidism, unspecified; Z88.6 Allergy status to analgesic agent; Z87.891 Personal history of nicotine dependence; Z90.49 Acquired absence of other specified parts of digestive tract; Z90.710 Acquired absence of both cervix and uterus
CPT/HCPCS: 93005; 36591; 99285; 96374; 96375; 36415; 82553; 82550; 85025; 80053; 84484; 71045; 93010; J2765; J2060; A9270

== ENCOUNTER → 2018-08-22 | Outpatient (CLI) | payer MEDICARE, MEDICAID ==
--- NOTE | 2018-08-22 16:29 | RADIOLOGY REPORT (SQ) ---
EXAM DESCRIPTION: CT CHEST WITHOUT COMPLETED DATE/TIME: 08/22/2018 2:30 pm REASON FOR STUDY: CHEST PAIN (R07.1) R07.1 CHEST PAIN ON BREATHING COMPARISON: Chest films 07/24/2018, 05/12/2018 CT soft tissue neck 07/04/2018, 05/24/2008 CT abdomen pelvis 07/04/2018, 04/04/2017, 08/04/2014 TECHNIQUE: CT scan performed of the chest without intravenous contrast. Images reviewed with lung, soft tissue and bone windows. Reconstructed coronal and sagittal MPR images reviewed. All images st ored on PACS. All CT scanners at this facility use dose modulation, iterative reconstruction, and/or weight based d osing when appropriate to reduce radiation dose to as low as reasonably achievable (ALARA). [facility]: Dose Right [facility]: CareDose [facility]: Dose Right [facility]: Teradose 4D [facility]: [employer] RADIATION DOSE: CT Rad equipment meets quality standard of care and radiation dose reduction techniq ues were employed. CTDIvol: 6.2 mGy. DLP: 258 mGy-cm. mGy. LIMITATIONS: No technical limitations. FINDINGS: LUNGS AND PLEURA: Minimal right apical bandlike pleuroparenchymal scarring. Lungs are well inflated and clear. No worrisome pulmonary nodules. No pleural effusion or pneumotho rax. HILAR AND MEDIASTINAL STRUCTURES: Air-fluid level in the esophagus with distal esophageal wall thicke teresa and small hiatal hernia. Question reflux esophagitis HEART AND VASCULAR STRUCTURES: No thoracic aortic aneurysm. Minimal coronary artery calcifications. No cardiomegaly or pericardial fluid. UPPER ABDOMEN: Post cholecystectomy. Benign hepatic cysts, the largest is in the right lobe liver 3. 3 cm in diameter. 5.6 cm left upper pole cortical cyst, 4.5 cm left midpole cortical cyst THYROID AND OTHER SOFT TISSUES: No masses. No adenopathy. BONES: No significant finding. HARDWARE: Right jugular central line tip in the upper right atrium. OTHER: No other significant findings. IMPRESSION: Diffuse esophageal wall thickening with hiatal hernia. Reflux esophagitis is suspected. TECHNICAL DOCUMENTATION: JOB ID: [id number] Quality ID # [id number]: Final reports with documentation of one or more dose reduction techniques (e.g., Au tomated exposure control, adjustment of the mA and/or kV according to patient size, use of iterative reconstruction technique) 2010 [employer]- All Rights Reserved Reading location - IP/workstation name: [email or web address]
== END ==
LOC: RAD 14:16
PROVIDERS: ATTEND Internal Medicine
DX: K44.9 Diaphragmatic hernia without obstruction or gangrene (principal); R07.1 Chest pain on breathing
CPT/HCPCS: 71250

== ENCOUNTER → 2018-12-17 | Outpatient (CLI) | payer MEDICARE, MEDICAID ==
--- NOTE | 2018-12-17 15:33 | RADIOLOGY REPORT (SQ) ---
EXAM DESCRIPTION: HAND BILATERAL 3 VIEWS COMPLETED DATE/TIME: 12/17/2018 3:12 pm REASON FOR STUDY: M12.9 ARTHROPATHY, UNSPECIFIED M12.9 ARTHROPATHY, UNSPECIFIED COMPARISON: None. EXAM PARAMETERS: NUMBER OF VIEWS: Three views. TECHNIQUE: AP, lateral and oblique radiographic images acquired of the right and left hand. LIMITATIONS: None. FINDINGS: MINERALIZATION: Decreased. BONES: No acute fracture or dislocation. No worrisome bone lesions. JOINTS: No large effusion. No evidence of erosive or productive disease. Mild degenerative changes with trace osteophytosis is scattered interphalangeal joints and at the 1st carpometacarpal joint marleen aterally. SOFT TISSUES: No soft tissue swelling. No foreign body. OTHER: No other significant finding. IMPRESSION: 1. No evidence of acute bony abnormality. 2. Mild osteoarthritic changes at scattered interphalangeal joints and the 1st carpometacarpal joint s bilaterally. No evidence of erosive or productive disease. TECHNICAL DOCUMENTATION: JOB ID: [id number] [employer]- All Rights Reserved Reading location - IP/workstation name: [email or web address]
== END ==
LOC: RAD 14:49
PROVIDERS: ATTEND Internal Medicine
DX: M12.9 Arthropathy, unspecified (principal)

== ENCOUNTER → 2019-01-12 | Outpatient (CLI) | payer MEDICARE, MEDICAID ==
--- NOTE | 2019-01-12 14:02 | RADIOLOGY REPORT (SQ) ---
EXAM DESCRIPTION: CHEST 2 VIEWS COMPLETED DATE/TIME: 01/12/2019 1:44 pm REASON FOR STUDY: PNEUMONIA (J18.9) COMPARISON: 07/24/2018 EXAM PARAMETERS: NUMBER OF VIEWS: two views TECHNIQUE: Digital Frontal and Lateral radiographic views of the chest acquired. RADIATION DOSE: NA LIMITATIONS: none FINDINGS: LUNGS AND PLEURA: No opacities, masses or pneumothorax. No pleural effusion. MEDIASTINUM AND HILAR STRUCTURES: No masses or contour abnormalities. HEART AND VASCULAR STRUCTURES: Heart normal size. No evidence for failure. BONES: No acute findings. HARDWARE: Right Egpyko-W-Lgsp catheter, unchanged finding. OTHER: No other significant finding. IMPRESSION: 1. No significant interval changes since the prior examination dated 07/24/2018. No ac [place] findings. TECHNICAL DOCUMENTATION: JOB ID: [id number] [employer]- All Rights Reserved Reading location - IP/workstation name: [email or web address]
== END ==
LOC: RAD 13:28
PROVIDERS: ATTEND Internal Medicine
DX: J18.9 Pneumonia, unspecified organism (principal)
CPT/HCPCS: 71046

== ENCOUNTER → 2019-01-21 | Outpatient (CLI) | payer MEDICARE, MEDICAID | LOC: RAD 12:45 | PROVIDERS: ATTEND Internal Medicine | DX: Z53.9 Procedure and treatment not carried out, unspecified reason (principal) | CPT/HCPCS: J1642 ==

== ENCOUNTER → 2019-01-22 | Outpatient (CLI) | payer MEDICARE, MEDICAID ==
--- NOTE | 2019-01-22 14:59 | RADIOLOGY REPORT (SQ) ---
EXAM DESCRIPTION: CT SOFT TISSUE NECK WITHOUT COMPLETED DATE/TIME: 01/22/2019 2:08 pm REASON FOR STUDY: NECK MASS (R22.1) R22.1 LOCALIZED SWELLING, MASS AND LUMP, NECK COMPARISON: 07/04/2018 TECHNIQUE: Noncontrast scanning from skull base through lung apices with review of bone, soft tissue and lung windows. Reconstructed coronal and sagittal MPR images reviewed. All images stored on PAC S. All CT scanners at this facility use dose modulation, iterative reconstruction, and/or weight based d osing when appropriate to reduce radiation dose to as low as reasonably achievable (ALARA). [facility]: Dose Right [facility]: CareDose [facility]: Dose Right [facility]: Teradose 4D [facility]: Crowdx RADIATION DOSE: mGy. LIMITATIONS: None. FINDINGS: SKULL BASE: Intact. MAJOR SALIVARY GLANDS: No solid or cystic masses. No inflammatory changes. LYMPHADENOPATHY: No adenopathy. MUCOSAL MASSES OR ASYMMETRY: No mucosal masses or asymmetry. LARYNX/CORDS: No abnormal findings. LUNG APICES: Stable right apical pleural thickening. BONES: Intact. THYROID: Normal size. No masses. PARANASAL SINUSES: Clear. OTHER: Right-sided port partially visualized. IMPRESSION: NO SIGNIFICANT FINDING IN THE SOFT TISSUES OF THE NECK. TECHNICAL DOCUMENTATION: JOB ID: [id number] Quality ID # [id number]: Final reports with documentation of one or more dose reduction techniques (e.g., Au tomated exposure control, adjustment of the mA and/or kV according to patient size, use of iterative reconstruction technique) 2010 [employer]- All Rights Reserved Reading location - IP/workstation name: [email or web address]
== END ==
LOC: RAD 13:47
PROVIDERS: ATTEND Internal Medicine
DX: R22.1 Localized swelling, mass and lump, neck (principal)
CPT/HCPCS: 70490

== ENCOUNTER 2019-04-17 18:16 | Emergency (ER) | payer MEDICARE, MEDICAID ==
--- NOTE | 2019-04-17 19:03 | ER Document Report ---
ED Medical Screen (RME) - General Chief Complaint: Chest Pain Stated Complaint: CHEST PAIN Time Seen by Provider: 04/17/19 18:56 Primary Care Provider: JENNIFER TORRES MD [Primary Care Provider] - Follow up as needed Mode of Arrival: Ambulatory Information source: Patient Notes: 68-year-old female presented to ED for complaint of epigastric/chest pain. She states she took all of her medications to commit her breakfast at about 7 AM and 11:00 she had severe epigastric pain that was burning and hurting. She took some Mylanta about 1130 and laid down and the pain got better for little while then it got much worse. She states she is coming to the emergency room tonight to get her "heart checked out ". 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 I have greeted and performed a rapid initial assessment of this patient. A comprehensive ED assessment and evaluation of the patient, analysis of test results and completion of medical decision making process will be conducted by an additional ED providers. Dictation of this chart was performed using voice recognition software; therefore, there may be some unintended grammatical errors. TRAVEL OUTSIDE OF THE [place] IN LAST 30 DAYS: No - Related Data Allergies/Adverse Reactions: hydromorphone HCl [From Dilaudid] Allergy (Verified 04/17/19 18:19) ketorolac tromethamine [From Toradol] Allergy (Verified 04/17/19 18:19) morphine [Morphine] Allergy (Verified 04/17/19 18:19) phenazopyridine HCl [From Pyridium] Allergy (Verified 04/17/19 18:19) tramadol [Tramadol] Allergy (Verified 04/17/19 18:19) iodine [Iodine] Adverse Reaction (Verified 04/17/19 18:19) prednisone Adverse Reaction (Verified 04/17/19 18:19) iv contrast Allergy (Uncoded 04/17/19 18:19) Past Medical History - Social History Chew tobacco use (# tins/day): No Frequency of alcohol use: None Drug Abuse: None - Past Medical History Cardiac Medical History: Reports: Hx Hypercholesterolemia Pulmonary Medical History: Reports: Hx Asthma, Hx COPD Neurological Medical History: Reports: Hx Migraine Endocrine Medical History: Reports: Hx Hypothyroidism Renal/ Medical History: Denies: Hx Peritoneal Dialysis GI Medical History: Reports: Hx Gastroesophageal Reflux Disease Musculoskeltal Medical History: Reports Hx Arthritis, Reports Hx Musculoskeletal Deformity, Reports Hx Musculoskeletal Trauma Psychiatric Medical History: Reports: Hx Anxiety Past Surgical History: Reports: Hx Abdominal Surgery - Exploratory lap with removal of adhesions, bowel obstruction, Hx Appendectomy, Hx Cardiac Catheterization - SEVERAL YRS. AGO, Hx Cholecystectomy, Hx Gynecologic Surgery - oophorectomy, Hx Hysterectomy, Hx Tonsillectomy - Immunizations Hx Diphtheria, Pertussis, Tetanus Vaccination: No Physical Exam - Vital signs Vitals: Temp Pulse Resp BP Pulse Ox 97.7 F 75 18 178/89 H 96 04/17/19 18:30 04/17/19 18:30 04/17/19 18:30 04/17/19 18:30 04/17/19 18:30 Course - Vital Signs Vital signs: Temp Pulse Resp BP Pulse Ox 97.7 F 75 18 178/89 H 96 04/17/19 18:30 04/17/19 18:30 04/17/19 18:30 04/17/19 18:30 04/17/19 18:30 Doctor's Discharge - Discharge Referrals: JENNIFER TORRES MD [Primary Care Provider] - Follow up as needed
--- NOTE | 2019-04-17 19:05 | EKG REPORT ---
SEVERITY:- OTHERWISE NORMAL ECG - SINUS RHYTHM VENTRICULAR PREMATURE COMPLEX : Confirmed by: Nicholas Andersen MD 17-Apr-2019 19:04:27
--- NOTE | 2019-04-17 20:24 | RADIOLOGY REPORT (SQ) ---
EXAM DESCRIPTION: XR CHEST 2 VIEWS COMPLETED DATE/TME: 04/17/2019 18:57 CLINICAL HISTORY: chest/epigastric pain COMPARISON: 01/12/2019 FINDINGS: Frontal and lateral views of the chest. Right IJ Mediport with tip in the SVC. The cardiomediastinal silhouette has normal size and contour. No consolidation, pneumothorax, or pleural effusion. No acute osseous abnormalities. Upper abdominal soft tissues are unremarkable. IMPRESSION: 1. No acute pulmonary process identified.
[2019-04-17 20:29] LABS: ABSOLUTE EOSINOPHILS # (AUTO) 0.3 10^3/uL (0.0-0.6); ABSOLUTE LYMPHOCYTES (AUTO) 1.7 10^3/uL (0.5-4.7); ABSOLUTE MONOCYTES (AUTO) 0.9 10^3/uL (0.1-1.4); ABSOLUTE NEUT (AUTO) 2.7 10^3/uL (1.7-8.2); BASOPHILS % (AUTO) 0.6 % (0-2); EOSINOPHILS % (AUTO) 6.1 % (0-6); HEMATOCRIT 32.8 % (36.0-47.0); LYMPHOCYTES % (AUTO) 30.4 % (13-45); MEAN CORPUSCULAR HEMOGLOBIN 30.7 pg (27.0-33.4); MEAN CORPUSCULAR HGB CONC 33.5 g/dL (32.0-36.0); MEAN CORPUSCULAR VOLUME 92 fl (80-97); MONOCYTES % (AUTO) 15.2 % (3-13); PLATELET COUNT 242 10^3/uL (150-450); RED BLOOD COUNT 3.59 10^6/uL (3.72-5.28); RED CELL DISTRIBUTION WIDTH 13.1 % (11.5-14.0); SEGMENTED NEUTROPHILS % (AUTO) 47.7 % (42-78); TOTAL CELLS COUNTED % (AUTO) 100 %; WHITE BLOOD COUNT 5.7 10^3/uL (4.0-10.5)
[2019-04-17 20:41] LABS: ALBUMIN 3.3 g/dL (3.5-5.0); ALKALINE PHOSPHATASE 84 U/L (38-126); ANION GAP 7 (5-19); ASPARTATE AMINO TRANSFERASE 21 U/L (14-36); BILIRUBIN,DIRECT 0.2 mg/dL (0.0-0.4); BILIRUBIN,TOTAL 0.2 mg/dL (0.2-1.3); BLOOD UREA NITROGEN 16 mg/dL (7-20); CALCIUM 8.6 mg/dL (8.4-10.2); CARBON DIOXIDE 26 mmol/L (22-30); CHLORIDE 108 mmol/L (98-107); CREATINE KINASE 55 U/L (30-135); GLUCOSE 88 mg/dL (75-110); POTASSIUM 3.5 mmol/L (3.6-5.0); TOTAL PROTEIN 6.2 g/dL (6.3-8.2)
[2019-04-17 20:52] LABS: CREATINE KINASE MB 0.42 ng/mL (<4.55)
[2019-04-17 20:59] LABS: TROPONIN I < 0.012 ng/mL
[2019-04-17] MEDS ORDERED: OXYCODONE-ACETAMINOPHEN 5-325 MG TABLET PO ONE (22:20)
[2019-04-17] MEDS ORDERED: ONDANSETRON 4 MG TAB.RAPDIS PO ONE (22:20)
[2019-04-17] MEDS ORDERED: SUCRALFATE 1 GM TABLET PO ONE (22:20)
--- NOTE | 2019-04-17 22:22 | ER Document Report ---
ED General - General Chief Complaint: Chest Pain Stated Complaint: CHEST PAIN Time Seen by Provider: 04/17/19 18:56 Primary Care Provider: JENNIFER TORRES MD [Primary Care Provider] - Follow up as needed Mode of Arrival: Ambulatory Notes: Patient is a 68-year-old female that comes emergency department for chief complaint of chest pain, she points to the epigastric area for the location p ain, she states that she started having sharp and burning pain in the epigastric area at about 11 AM, she took Mylanta, she states pain has been coming and going since then. She reports nausea but she denies vomiting. She denies shortness of breath, dizziness, fever/chills, injury. She has had a cholecystectomy, appendectomy, been treated for tongue cancer (off chemotherapy and radiation for a long time), and did have pancreatitis during treatment. She states she has had a negative cath and negative stress test, denies any cardiac history, remaining history is asthma and hypothyroidism. She states she has an endoscopy and colonoscopy scheduled coming up. TRAVEL OUTSIDE OF THE [place] IN LAST 30 DAYS: No - Related Data Allergies/Adverse Reactions: hydromorphone HCl [From Dilaudid] Allergy (Verified 04/17/19 18:19) ketorolac tromethamine [From Toradol] Allergy (Verified 04/17/19 18:19) morphine [Morphine] Allergy (Verified 04/17/19 18:19) phenazopyridine HCl [From Pyridium] Allergy (Verified 04/17/19 18:19) tramadol [Tramadol] Allergy (Verified 04/17/19 18:19) iodine [Iodine] Adverse Reaction (Verified 04/17/19 18:19) prednisone Adverse Reaction (Verified 04/17/19 18:19) iv contrast Allergy (Uncoded 04/17/19 18:19) Past Medical History - General Information source: Patient - Social History Smoking Status: Unknown if Ever Smoked Chew tobacco use (# tins/day): No Frequency of alcohol use: None Drug Abuse: None Lives with: Family Family History: CAD, DM, Hyperlipidemia, Hypertension, Malignancy Patient has suicidal ideation: No Patient has homicidal ideation: No - Past Medical History Cardiac Medical History: Reports: Hx Hypercholesterolemia Pulmonary Medical History: Reports: Hx Asthma, Hx COPD Neurological Medical History: Reports: Hx Migraine Endocrine Medical History: Reports: Hx Hypothyroidism Renal/ Medical History: Denies: Hx Peritoneal Dialysis GI Medical History: Reports: Hx Gastroesophageal Reflux Disease Musculoskeletal Medical History: Reports Hx Arthritis, Reports Hx Musculoskeletal Deformity, Reports Hx Musculoskeletal Trauma Psychiatric Medical History: Reports: Hx Anxiety Past Surgical History: Reports: Hx Abdominal Surgery - Exploratory lap with removal of adhesions, bowel obstruction, Hx Appendectomy, Hx Cardiac Catheterization - SEVERAL YRS. AGO, Hx Cholecystectomy, Hx Gynecologic Surgery - oophorectomy, Hx Hysterectomy, Hx Tonsillectomy - Immunizations Hx Diphtheria, Pertussis, Tetanus Vaccination: No Review of Systems - Review of Systems Constitutional: No symptoms reported EENT: No symptoms reported Cardiovascular: No symptoms reported Respiratory: No symptoms reported Gastrointestinal: See HPI Genitourinary: No symptoms reported Female Genitourinary: No symptoms reported Musculoskeletal: No symptoms reported Skin: No symptoms reported Hematologic/Lymphatic: No symptoms reported Neurological/Psychological: No symptoms reported Physical Exam - Vital signs Vitals: Temp Pulse Resp BP Pulse Ox 97.7 F 75 18 178/89 H 96 04/17/19 18:30 04/17/19 18:30 04/17/19 18:30 04/17/19 18:30 04/17/19 18:30 - Notes Notes: GENERAL: Alert, interacts well. Mildly uncomfortable HEAD: Normocephalic, atraumatic. EYES: Pupils equal, round, and reactive to light. Extraocular movements intact. ENT: Oral mucosa moist, tongue midline. Oropharynx unremarkable. Airway patent. NECK: Full range of motion. Supple. Trachea midline. LUNGS: Clear to auscultation bilaterally, no wheezes, rales, or rhonchi. No respiratory distress. HEART: Regular rate and rhythm. No murmur ABDOMEN: Epigastric and left upper quadrant tenderness, no guarding, abdomen is completely benign otherwise. Multiple abdominal scars consistent with cholecystectomy and exploratory laparotomy. GENITOURINARY: Deferred EXTREMITIES: Moves all 4 extremities spontaneously. No edema, normal radial and dorsalis pedis pulses bilaterally. No cyanosis. BACK: no cervical, thoracic, lumbar midline tenderness. No saddle anesthesia, normal distal neurovascular exam. Moves all extremities in full range of motion. NEUROLOGICAL: Alert and oriented x3. Normal speech. Cranial nerves II through XII grossly intact. PSYCH: Normal affect, normal mood. SKIN: Warm, dry, normal turgor. No rashes or lesions noted. Course - Re-evaluation Re-evalutation: Patient is very specific epigastric pain. She even points to the area, the area is tender on palpation, however there is no guarding to the area. She has had a cholecystectomy. CBC, chemistry, lipase unremarkable, troponin is not elevated. Troponin was drawn 8 hours after symptom onset. This does not appear to be cardiac. Chest x-ray and EKG without acute findings. Patient was given p.o. medications, she tolerated this well, she was given a dose of pain medication IM as well. She did have good recovery. Patient already has scheduled endoscopy, she will be provided with medications for suspected upper gastrointestinal inflammation, discussed return precautions in detail. Patient states understanding and agreement. Stable at time of discharge. - Vital Signs Vital signs: Temp Pulse Resp BP Pulse Ox 97.5 F 61 18 154/69 H 99 04/18/19 00:23 04/18/19 00:23 04/18/19 00:23 04/18/19 00:23 04/18/19 00:23 - Laboratory Result Diagrams: 04/17/19 20:00 04/17/19 20:00 Laboratory results interpreted by me: 04/17/19 04/17/19 04/17/19 20:00 20:00 20:00 RBC 3.59 L Hgb 11.0 L Hct 32.8 L Monocytes % 15.2 H Eosinophils % 6.1 H Potassium 3.5 L Chloride 108 H Total Protein 6.2 L Albumin 3.3 L Urine Blood MODERATE H Ur Leukocyte Esterase SMALL H Discharge - Discharge Clinical Impression: Epigastric pain Condition: Stable Disposition: HOME, SELF-CARE Additional Instructions: Your symptoms and examination appear to be coming from gastritis/esophagitis (inflammation of your upper gastrointestinal tract). Take Zofran for nausea if needed, take Carafate and Pepcid as prescribed along with your current medications to help treat this, you can take additional Rolaids, Tums, Maalox, etc. if needed. You can take your Percocet for pain. Avoid NSAIDs, alcohol, smoking, caffeine, spicy food. Start with clear fluids, progress to bland diet. Follow-up closely with your provider along with your planned endoscopy/colonosc opy. Return if you worsen including vomiting, vomiting blood, black stools, severe worsening pain, or any other concerning symptoms. Prescriptions: Famotidine [Pepcid 20 mg Tablet] 20 mg PO BID #20 tablet Ondansetron [Zofran Odt 4 mg Tablet] 1 - 2 tab PO Q4H PRN #15 tab.rapdis PRN Reason: For Nausea/Vomiting Sucralfate [Carafate 1 gm Tablet] 1 gm PO QID #20 tablet Referrals: JENNIFER TORRES MD [Primary Care Provider] - Follow up as needed
[2019-04-17 22:26] LABS: APPEARANCE,URINE CLEAR; BILIRUBIN,URINE NEGATIVE (NEGATIVE); COLOR,URINE YELLOW; GLUCOSE, URINE NEGATIVE (NEGATIVE); KETONES,URINE NEGATIVE (NEGATIVE); LEUKOCYTE ESTERASE,URINE SMALL (NEGATIVE); NITRITE,URINE NEGATIVE (NEGATIVE); PROTEIN,URINE NEGATIVE (NEGATIVE); URINE SPECIFIC GRAVITY 1.018; UROBILINOGEN,URINE NEGATIVE mg/dL (<2.0)
[2019-04-17] MEDS ORDERED: FENTANYL CITRATE INJ/PF 100 MCG/2 ML AMPUL IM ONE (23:19)
[2019-04-18 00:46] VITALS: BP 154/69
== END 2019-04-18 00:46 | disposition home or self-care (01) ==
LOC: ER 18:16
DX: R10.13 Epigastric pain (principal); R11.0 Nausea; R10.816 Epigastric abdominal tenderness; R10.812 Left upper quadrant abdominal tenderness; J44.9 Chronic obstructive pulmonary disease, unspecified; Z90.49 Acquired absence of other specified parts of digestive tract; Z85.810 Personal history of malignant neoplasm of tongue; Z92.21 Personal history of antineoplastic chemotherapy; Z92.3 Personal history of irradiation; Z87.19 Personal history of other diseases of the digestive system; Z88.8 Allergy status to other drugs, medicaments and biological substances; Z88.6 Allergy status to analgesic agent; Z88.5 Allergy status to narcotic agent
CPT/HCPCS: 93005; 36591; 99284; 96372; 36415; 82553; 82550; 83690; 85025; 80053; 81001; 84484; 71046; 93010; A9270 ×3; J3010; J1642; S0119

== ENCOUNTER 2020-02-13 11:22 | Emergency (ER) | payer MEDICARE, MEDICAID ==
[2020-02-13 11:29] VITALS: BP 150/83
--- NOTE | 2020-02-13 12:04 | ER Document Report ---
ED Fall - General Chief Complaint: Fall Injury Stated Complaint: FALL/KNEE PAIN Time Seen by Provider: 02/13/20 12:01 Mode of Arrival: Ambulatory Information source: Patient TRAVEL OUTSIDE OF THE [place] IN LAST 30 DAYS: No - HPI Occurred: Yesterday - This 69-year-old female presented to the emergency room today stating that she had had a slip fall coming out of a store yesterday has pain to her right knee right hip and right wrist as a result. It was a mechanical in nature fall. - Related data Allergies/Adverse Reactions: hydrocodone Allergy (Verified 02/13/20 11:57) hydromorphone HCl [From Dilaudid] Allergy (Verified 04/17/19 18:19) ketorolac tromethamine [From Toradol] Allergy (Verified 04/17/19 18:19) morphine [Morphine] Allergy (Verified 04/17/19 18:19) phenazopyridine HCl [From Pyridium] Allergy (Verified 04/17/19 18:19) tramadol [Tramadol] Allergy (Verified 04/17/19 18:19) iodine [Iodine] Adverse Reaction (Verified 04/17/19 18:19) prednisone Adverse Reaction (Verified 04/17/19 18:19) iv contrast Allergy (Uncoded 04/17/19 18:19) Past Medical History - General Information source: Patient - Social History Smoking Status: Never Smoker Cigarette use (# per day): No Chew tobacco use (# tins/day): No Smoking Education Provided: No Frequency of alcohol use: None Drug Abuse: None Family History: CAD, DM, Hyperlipidemia, Hypertension, Malignancy Patient has homicidal ideation: No - Past Medical History Cardiac Medical History: Reports: Hx Hypercholesterolemia Pulmonary Medical History: Reports: Hx Asthma, Hx COPD Neurological Medical History: Reports: Hx Migraine Endocrine Medical History: Reports: Hx Hypothyroidism Renal/ Medical History: Denies: Hx Peritoneal Dialysis GI Medical History: Reports: Hx Gastroesophageal Reflux Disease Musculoskeletal Medical History: Reports Hx Arthritis, Reports Hx Musculoskeletal Deformity, Reports Hx Musculoskeletal Trauma Psychiatric Medical History: Reports: Hx Anxiety Past Surgical History: Reports: Hx Abdominal Surgery - Exploratory lap with removal of adhesions, bowel obstruction, Hx Appendectomy, Hx Cardiac Catheterization - SEVERAL YRS. AGO, Hx Cholecystectomy, Hx Gynecologic Surgery - oophorectomy, Hx Hysterectomy, Hx Tonsillectomy - Immunizations Hx Diphtheria, Pertussis, Tetanus Vaccination: No Review of Systems - Review of Systems Constitutional: No symptoms reported EENT: No symptoms reported Cardiovascular: No symptoms reported Respiratory: No symptoms reported Gastrointestinal: No symptoms reported Genitourinary: No symptoms reported Female Genitourinary: No symptoms reported Musculoskeletal: No symptoms reported Skin: No symptoms reported Hematologic/Lymphatic: No symptoms reported Neurological/Psychological: No symptoms reported Physical Exam - Vital signs Vitals: Temp Pulse Resp BP Pulse Ox 97.9 F 75 16 150/83 H 02/13/20 11:26 02/13/20 11:02/13/20 11:02/13/20 11:02/13/20 11:26 Interpretation: Normal - General General appearance: Appears well, Alert - HEENT Head: Normocephalic, Atraumatic Eyes: Normal Pupils: PERRL - Respiratory Respiratory status: No respiratory distress Chest status: Nontender Breath sounds: Normal Chest palpation: Normal - Cardiovascular Rhythm: Regular Heart sounds: Normal auscultation Murmur: No - Abdominal Inspection: Normal Distension: No distension Bowel sounds: Normal Tenderness: Nontender Organomegaly: No organomegaly - Back Back: Normal, Nontender - Extremities General upper extremity: Normal inspection, Nontender, Normal color, Normal ROM, Normal temperature General lower extremity: Normal inspection, Nontender, Normal color, Normal ROM, Normal temperature, Normal weight bearing. No: Naima's sign Elbow: Normal, Nontender Wrist: Tender. No: Deformity, Dislocation Knee: Tender, Pain with ROM. No: Drawer's test instability, Ecchymosis - Neurological Neuro grossly intact: Yes Cognition: Normal Orientation: AAOx4 Jew[place] Coma Scale Eye Opening: Spontaneous [place] Coma Scale Verbal: Oriented [place] Coma Scale Motor: Obeys Commands [place] Coma Scale Total: 15 Speech: Normal Motor strength normal: LUE, RUE, LLE, RLE Sensory: Normal - Psychological Associated symptoms: Normal affect, Normal mood - Skin Skin Temperature: Warm Skin Moisture: Dry Skin Color: Normal Course - Vital Signs Vital signs: Temp Pulse Resp BP Pulse Ox 97.9 F 75 16 150/83 H 02/13/20 11:57 02/13/20 11:26 02/13/20 11:26 02/13/20 11:02/13/20 11:26 - Diagnostic Test Radiology reviewed: Reports reviewed - The EMR is not pulling in the reports however were reviewed by myself Discharge - Discharge Clinical Impression: Multiple contusions Contusion Qualifiers: Encounter type: initial encounter Contusion area: hip Condition: Good Disposition: HOME, SELF-CARE Instructions: Ice & Elevation ([facility]), Suspected Internal Knee Injury ([facility]), Sprained Knee ([facility]) Additional Instructions: Must follow-up with PMD in 3 to 5 days for definitive radiology readings and follow-up until complete resolution. Rest. Elevate. Ice. Compress. Return to the ED for any change or worsening condition. Prescriptions: Diclofenac Sodium 75 mg PO QAM 20 Days #20 tablet.dr Referrals: MADELEINE MIKE MD [ACTIVE PROVISIONAL STAFF] - Follow up as needed
--- NOTE | 2020-02-13 12:44 | RADIOLOGY REPORT (SQ) ---
EXAM DESCRIPTION: HIP RIGHT AP/LATERAL; WRIST RIGHT 3 VIEWS; KNEE RIGHT 3 VIEWS IMAGES COMPLETED DATE/TIME: 02/13/2020 12:28 pm REASON FOR STUDY: pain COMPARISON: Knee radiographs 2011. FINDINGS: Three views right wrist: Normal carpal alignment without evidence of gross fracture. No subluxation or dislocation. Three views right knee: Slight posterior femoral broad bone bulge, of no significance and chronic. Potentially related to sessile osteochondroma. No fracture. No joint effusion. Two views pelvis and right hip: Osteopenic. No fracture or bone lesion. Bilateral symmetric hip joseph int space narrowing and osteophytes, mild. Symmetric mild degenerative changes in the SI joints. TECHNICAL DOCUMENTATION: JOB ID: [id number] Reading location - IP/workstation name: [email or web address]
--- NOTE | 2020-02-13 12:44 | RADIOLOGY REPORT (SQ) ---
EXAM DESCRIPTION: HIP RIGHT AP/LATERAL; WRIST RIGHT 3 VIEWS; KNEE RIGHT 3 VIEWS IMAGES COMPLETED DATE/TIME: 02/13/2020 12:28 pm REASON FOR STUDY: pain COMPARISON: Knee radiographs 2011. FINDINGS: Three views right wrist: Normal carpal alignment without evidence of gross fracture. No subluxation or dislocation. Three views right knee: Slight posterior femoral broad bone bulge, of no significance and chronic. Potentially related to sessile osteochondroma. No fracture. No joint effusion. Two views pelvis and right hip: Osteopenic. No fracture or bone lesion. Bilateral symmetric hip joseph int space narrowing and osteophytes, mild. Symmetric mild degenerative changes in the SI joints. TECHNICAL DOCUMENTATION: JOB ID: [id number] Reading location - IP/workstation name: [email or web address]
--- NOTE | 2020-02-13 12:44 | RADIOLOGY REPORT (SQ) ---
EXAM DESCRIPTION: HIP RIGHT AP/LATERAL; WRIST RIGHT 3 VIEWS; KNEE RIGHT 3 VIEWS IMAGES COMPLETED DATE/TIME: 02/13/2020 12:28 pm REASON FOR STUDY: pain COMPARISON: Knee radiographs 2011. FINDINGS: Three views right wrist: Normal carpal alignment without evidence of gross fracture. No subluxation or dislocation. Three views right knee: Slight posterior femoral broad bone bulge, of no significance and chronic. Potentially related to sessile osteochondroma. No fracture. No joint effusion. Two views pelvis and right hip: Osteopenic. No fracture or bone lesion. Bilateral symmetric hip joseph int space narrowing and osteophytes, mild. Symmetric mild degenerative changes in the SI joints. TECHNICAL DOCUMENTATION: JOB ID: [id number] Reading location - IP/workstation name: [email or web address]
== END 2020-02-13 13:01 | disposition home or self-care (01) ==
LOC: ER 11:22
DX: S70.01XA Contusion of right hip, initial encounter (principal); S80.01XA Contusion of right knee, initial encounter; M25.561 Pain in right knee; M25.551 Pain in right hip; M25.531 Pain in right wrist; W01.0XXA Fall on same level from slipping, tripping and stumbling without subsequent striking against object, initial encounter; Z88.8 Allergy status to other drugs, medicaments and biological substances; J44.9 Chronic obstructive pulmonary disease, unspecified
CPT/HCPCS: 99283

== ENCOUNTER → 2020-08-03 | Outpatient (CLI) | payer MEDICARE, MEDICAID ==
--- NOTE | 2020-08-03 13:01 | RADIOLOGY REPORT (SQ) ---
EXAM DESCRIPTION: WRIST LEFT 2 VIEWS IMAGES COMPLETED DATE/TIME: 08/03/2020 12:48 pm REASON FOR STUDY: M25.532 PAIN IN LEFT WRIST M25.532 PAIN IN LEFT WRIST COMPARISON: None. NUMBER OF VIEWS: Two views. TECHNIQUE: AP and lateral radiographic images acquired of the left wrist. LIMITATIONS: None. FINDINGS: MINERALIZATION: Normal. BONES: No acute fracture or dislocation. No worrisome bone lesions. Normal alignment. Minimal oste ophytosis at the 1st carpometacarpal joint. SOFT TISSUES: No soft tissue swelling. No foreign body. OTHER: No other significant finding. IMPRESSION: NEGATIVE STUDY OF THE LEFT WRIST. NO RADIOGRAPHIC EVIDENCE OF ACUTE INJURY. TECHNICAL DOCUMENTATION: JOB ID: [id number] 2010 [employer]- All Rights Reserved Reading location - IP/workstation name: [email or web address]
== END ==
LOC: RAD 12:33
PROVIDERS: ATTEND Family Medicine
DX: M25.532 Pain in left wrist (principal)